=== PATIENT | female | born 1970 | race Caucasian/White ===

== ENCOUNTER 2017-05-29 03:14 | Emergency (ER) | payer BC, OTHER ==
[2017-05-29] MEDS ORDERED: SODIUM CHLORIDE 0.9% 1,000 ML IV ONE (03:24)
[2017-05-29] MEDS ORDERED: KETOROLAC 60 MG/2 ML VIAL IVP STA (03:24)
[2017-05-29] MEDS ORDERED: FAMOTIDINE 20 MG/2 ML VIAL IVP STA (03:25)
[2017-05-29] MEDS ORDERED: METOCLOPRAMIDE 10 MG/2 ML VIAL IVP STA (03:25)
[2017-05-29] MEDS ORDERED: METOCLOPRAMIDE 10 MG/2 ML VIAL ONE (03:31)
[2017-05-29] MEDS ORDERED: KETOROLAC 15 MG/ML VIAL ONE (03:32)
[2017-05-29] MEDS ORDERED: FAMOTIDINE 20 MG/2 ML VIAL ONE (03:32)
--- NOTE | 2017-05-29 03:41 | ED Physician Documentation ---
PD HPI NVD - Stated complaint Stated Complaint: VOMITING - Chief complaint Chief Complaint: Abd Pain - History obtained from History obtained from: Patient - History of Present Illness Timing - onset: How many hours ago (3), Today Timing - details: Abrupt onset, Still present in ED Associated symptoms: Abdominal pain Contributing factors: No: Sick contact, Bad food, Recent antibiotics Similar symptoms before: Work up / diagnostics, Treatment Recently seen: Not recently seen - Additonal information Additional information: Patient is a 46 year old female with a hisory of crohns and ibs (mixed diarrhea and constipation) who is presenting to the emergency department for for vomiting for the last three hours. patient states that it has been consistent and she can't keep anything down. Patient states that she now also has a pounding headache. Review of Systems Constitutional: denies: Fever, Chills Eyes: denies: Decreased vision, Photophobia Ears: denies: Ear pain Nose: denies: Congestion Throat: denies: Sore throat Cardiac: denies: Chest pain / pressure Respiratory: denies: Dyspnea, Cough GI: reports: Abdominal Pain, Nausea, Vomiting, Diarrhea : denies: Dysuria, Frequency, Incontinent Skin: denies: Rash, Lesions Musculoskeletal: denies: Neck pain, Back pain Neurologic: reports: Headache. 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: None : Kidney stones, None HEENT: None Psych: None, Anxiety Musculoskeletal: Osteoarthritis, Other Derm: Other drug resistant infections - Past Surgical History Past Surgical History: Yes General: Cholecystectomy, Appendectomy Ortho: Knee replacement, Spine surgery, Arthroscopic surgery - Present Medications Home Medications: Ambulatory Orders Medication Instructions Recorded Confirmed Clonazepam 1 mg PO DAILY 07/14/13 09/14/15 Lisinopril 5 mg PO DAILY 07/14/13 09/14/15 Verapamil [Calan] 80 mg PO BID 07/14/13 09/14/15 Clonidine HCl 0.3 mg PO BID 09/14/15 09/14/15 Ondansetron Odt [Zofran] 4 mg TL Q6H PRN #10 tablet 09/14/15 Prednisone 40 mg PO DAILY 5 Days tablet 09/14/15 Tapentadol HCl [Nucynta] 1 tab PO Q4HR PRN 09/14/15 09/14/15 Ondansetron Odt [Zofran] 4 mg TL Q6H PRN #14 tablet 05/29/17 - Allergies Allergies/Adverse Reactions: Allergies Allergy/AdvReac Type Severity Reaction Status Date / Time iodine Allergy Severe Rash Verified 05/29/17 03:22 morphine Allergy Severe Hives Verified 05/29/17 03:22 adhesive tape Allergy Intermediate Rash Verified 05/29/17 03:23 contrast Allergy Severe Respiratory Uncoded 05/29/17 03:22 - Social History Does the pt smoke?: No Smoking Status: Never smoker Does the pt drink ETOH?: No Does the pt have substance abuse?: Yes Substance Use and Type: Marijuana - Immunizations Immunizations are current?: Yes - POLST Patient has POLST: No PD ED PE NORMAL - Vitals Vital signs reviewed: Yes - General General: Alert and oriented X 3, Well developed/nourished - HEENT HEENT: Atraumatic, PERRL - Neck Neck: Supple, no meningeal sign, No JVD - Cardiac Cardiac: RRR, No murmur - Respiratory Respiratory: No respiratory distress, Clear bilaterally - Abdomen Abdomen: Soft - Derm Derm: Normal color, Warm and dry - Neuro Neuro: Alert and oriented X 3, No motor deficit, No sensory deficit, Normal speech PD ED PE EXPANDED - HEENT HEENT: Dry mucous membranes - Abdomen Abdomen: Tender to palpation, Epigastric. No: Rebound, Guarding Results - Vitals Vitals: Vital Signs - 24 hr 05/29/17 03:18 Temperature 36.7 C Heart Rate 93 Respiratory 20 Rate Blood Pressure 148/98 H O2 Saturation 96 Oxygen O2 Source Room air - Labs Labs: Laboratory Tests 05/29/17 05/29/17 04:00 04:00 WBC 21.9 H RBC 5.31 Hgb 16.6 H Hct 49.2 H MCV 92.7 MCH 31.2 H MCHC 33.7 RDW 12.8 Plt Count 334 MPV 8.0 Neut # 19.4 H Lymph # 1.2 L [place] # 0.9 Eos # 0.3 Baso # 0.1 Absolute Nucleated RBC 0.01 Nucleated RBC % 0.0 Sodium 135 Potassium 2.9 L Chloride 101 Carbon Dioxide 21 Anion Gap 13.0 BUN 23 H Creatinine 0.7 Estimated GFR (MDRD) 90 Glucose 93 Calcium 8.5 Total Bilirubin 1.1 H AST 19 ALT 26 Alkaline Phosphatase 67 Total Protein 7.7 Albumin 4.4 Globulin 3.3 Albumin/Globulin Ratio 1.3 Lipase 19 L PD MEDICAL DECISION MAKING - ED course Complexity details: reviewed old records, reviewed results, re-evaluated patient , considered differential, d/w patient ED course: Patient was seen and examined at bedside. IV access was gained and labs were drawn. Patient was treated with fluids, reglan, toradol and IV fluids. When patient's labs came back she was found to have a leukocytosis. CT was ordered and patient was treated with dilaudid for pain. patient responded well to the therapy and her symptoms resolved. patient's CT showed no major abnormalities. patient was treated with oral potassium. Patient was able to tolerate PO without difficulty and was stable for discharge with outpatient follow up. Departure - Departure Disposition: 01 Home, Self Care Clinical Impression: Gastroenteritis Condition: Good Instructions: ED Gastroenteritis Viral Follow-Up: Saleem Suazo MD [Primary Care Provider] - Prescriptions: Ondansetron Odt [Zofran] 4 mg TL Q6H PRN #14 tablet PRN Reason: Nausea / Vomiting Comments: Your symptoms today are being caused by gastroenteritis, likely viral in nature. You CT was within normal limits. Your potassium today was also low. It is important that you take the zofran every 6 hours and stay well hydrated with gatorade or other electrolyte solution. you should follow up with your pmd if your symptoms persist for more than the next few days. You may return to the emergency department at any time for new, worsening or uncontrollable symptoms.
[2017-05-29] MEDS ORDERED: ONDANSETRON ODT 4 MG TABLET TL STA (03:56)
[2017-05-29] MEDS ORDERED: ONDANSETRON ODT 4 MG TABLET ONE (03:59)
[2017-05-29 04:17] LABS: BASOPHILS # (AUTO) 0.1 10^3/uL (0.0-0.1); BASOPHILS % (AUTO) 0.5 %; EOSINOPHILS # (AUTO) 0.3 10^3/uL (0.0-0.7); EOSINOPHILS % (AUTO) 1.1 %; HCT - HEMATOCRIT 49.2 % (37.0-47.0); HGB - HEMOGLOBIN 16.6 g/dL (12.0-16.0); LYMPHOCYTES # (AUTO) 1.2 10^3/uL (1.5-3.5); LYMPHOCYTES % (AUTO) 5.5 %; MEAN CORPUSCULAR HEMOGLOBIN 31.2 pg (27.0-31.0); MEAN CORPUSCULAR HGB CONC 33.7 g/dL (32.0-36.0); MEAN CORPUSCULAR VOLUME 92.7 fL (81.0-99.0); MONOCYTES # (AUTO) 0.9 10^3/uL (0.0-1.0); MONOCYTES % (AUTO) 4.2 %; NEUTROPHILS # (AUTO) 19.4 10^3/uL (1.5-6.6); NEUTROPHILS % (AUTO) 88.7 %; RED BLOOD COUNT 5.31 10^6/uL (4.20-5.40); RED CELL DISTRIBUTION WIDTH 12.8 % (12.0-15.0); UNCORRECTED WHITE BLOOD COUNT 21.9 x10^3/uL; WHITE BLOOD COUNT 21.9 x10^3/uL (4.8-10.8)
[2017-05-29 04:30] LABS: ALBUMIN/GLOBULIN RATIO 1.3 (1.0-2.2); BILIRUBIN,TOTAL 1.1 mg/dL (0.2-1.0); CALCIUM 8.5 mg/dL (8.5-10.3); CREATININE 0.7 mg/dL (0.4-1.0); POTASSIUM 2.9 mmol/L (3.5-5.0); TOTAL PROTEIN 7.7 g/dL (6.7-8.2)
[2017-05-29] MEDS ORDERED: HYDROmorphone 1 MG/ML CARPUJECT ONE (04:53)
[2017-05-29] MEDS ORDERED: HYDROmorphone 1 MG/ML CARPUJECT IVP STA ×2 (04:54→04:55)
[2017-05-29] MEDS ORDERED: POTASSIUM CHLORIDE 20 MEQ TABLET PO STA (05:17)
--- NOTE | 2017-05-29 05:36 | CT Preliminary Report ---
Exam: CT Abdomen/Pelvis W/O IMPRESSION: 1. No gross acute inflammatory or obstructive process seen in the abdomen or pelvis on this non-IV co ntrast study. 2. Post cholecystectomy. [facility] SITE ID: [id number]
[2017-05-29] MEDS ORDERED: ONDANSETRON ODT 4 MG Prepack 2 TL PRN (05:45)
--- NOTE | 2017-05-29 05:46 | CT Report ---
EXAM: CT ABDOMEN AND PELVIS (CT KUB) EXAM DATE: 05/29/2017 05:21 AM. CLINICAL HISTORY: Abdominal pain, vomiting, leukocytosis. COMPARISONS: 08/19/2015. TECHNIQUE: Routine axial helical CT imaging was performed through the abdomen and pelvis without IV c ontrast. No IV contrast due to reported allergy. Reconstructions: Coronal and sagittal. In accordance with CT protocol optimization, one or more of the following dose reduction techniques w ere utilized for this exam: automated exposure control, adjustment of mA and/or KV based on patient s ize, or use of iterative reconstructive technique. FINDINGS: Lung Bases: Unremarkable. Right Kidney/Ureter: No stones, hydronephrosis, or hydroureter. No perinephric fat stranding. Left Kidney/Ureter: No stones, hydronephrosis, or hydroureter. No perinephric fat stranding. Other Solid Organs: Noncontrast images of the solid organs are grossly unremarkable. Gallbladder/Bile Ducts: Unremarkable post-cholecystectomy. Peritoneal Cavity: No free fluid, free air or pamela adenopathy. Bowel is grossly unremarkable. Pelvic Organs: No bladder stones or wall thickening. Noncontrast images of the visualized pelvic orga ns are unremarkable. Vasculature: Unremarkable. Other: Previous spinal surgery. IMPRESSION: 1. No gross acute inflammatory or obstructive process seen in the abdomen or pelvis on this non-IV co ntrast study. 2. Post-cholecystectomy. [facility] Referring Provider Line: [phone] SITE ID: [id number]
[2017-05-29] MEDS ORDERED: POTASSIUM CHLORIDE 20 MEQ TABLET PO ONE (05:48)
[2017-05-29] MEDS ORDERED: ONDANSETRON ODT 4 MG Prepack 2 TL ONE (05:52)
[2017-05-29 06:12] VITALS: BP 129/88
== END 2017-05-29 06:12 | disposition home or self-care (01) ==
LOC: ED 03:14
DX: K52.9 Noninfective gastroenteritis and colitis, unspecified (principal); E87.6 Hypokalemia; Z86.73 Personal history of transient ischemic attack (TIA), and cerebral infarction without residual deficits; Z96.659 Presence of unspecified artificial knee joint
CPT/HCPCS: 36415; 74176; 80053; 83690; 85025; 96361; 96374; 96375; 99283; A9270; J1170; Q0162

== ENCOUNTER 2018-07-10 14:10 | Emergency (ER) | payer BC ==
[2018-07-10 15:29] LABS: HCG UR QUAL NEGATIVE
--- NOTE | 2018-07-10 15:35 | ED Physician Documentation ---
PD HPI SEIZURE - Stated complaint Stated Complaint: NECK PX - Chief complaint Chief Complaint: Trauma Hd/Nk - History obtained from History obtained from: Patient, Family - History of Present Illness Timing - onset: How many days ago (3) Witnessed: Unwitnessed Number of seizures: Single, Lasted minutes Description of seizure activity: LOC, Postictal, Apneic Injury during seizure: Fell, Head injury, Neck injury Associated symptoms: Vision changes, Nausea / vomiting History of seizures: Other (4 prior episodes over the past 17 months.) Contributing factors: Other (prior CVA 2004, ablation 1999) Similar symptoms before: No diagnosis Recently seen: Not recently seen - Additional information Additional information: 47-year-old female who has had episodes of syncope in the past 17 months. She has had brief loss of consciousness for unknown reason and she has had 2 episodes close together now. She had an episode 3 days ago during which she collapsed in her bedroom and struck her head. She was attended to by her significant other and she noted that she was very stiff when he first went there and that she was not breathing. She came to relatively rapidly and had amnesia for the event. She does remember immediately prior to collapsing that her vision had an expanding feeling to it. She has previously had Zhepg-[id number]-[id number] and has had an ablation to that pathway. 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 She has not been on antiseizure medicine she has never been diagnosed with seizure. Review of Systems Constitutional: denies: Fever, Chills, Myalgias Eyes: denies: Decreased vision Ears: denies: Ear pain Nose: denies: Rhinorrhea / runny nose, Congestion Throat: denies: Sore throat Cardiac: denies: Chest pain / pressure, Palpitations Respiratory: denies: Dyspnea, Cough GI: reports: Vomiting (at the time of the syncope). denies: Abdominal Pain, Nausea : denies: Dysuria, Frequency Skin: denies: Rash Musculoskeletal: reports: Neck pain. denies: Back pain, Extremity pain Neurologic: reports: Numbness (to the 4th and 5th digit on the right.). 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: None : Kidney stones HEENT: None Psych: Anxiety Musculoskeletal: Osteoarthritis, Other Derm: Other drug resistant infections - Past Surgical History Past Surgical History: Yes General: Cholecystectomy, Appendectomy Ortho: Spine surgery, Arthroscopic surgery - Present Medications Home Medications: Ambulatory Orders Medication Instructions Recorded Confirmed Lisinopril 5 mg PO DAILY 07/14/13 09/14/15 Verapamil [Calan] 80 mg PO BID 07/14/13 09/14/15 clonazePAM [Clonazepam] 1 mg PO DAILY 07/14/13 09/14/15 Ondansetron Odt [Zofran] 4 mg TL Q6H PRN #10 tablet 09/14/15 Tapentadol HCl [Nucynta] 1 tab PO Q4HR PRN 09/14/15 09/14/15 cloNIDine HCl [Clonidine HCl] 0.3 mg PO BID 09/14/15 09/14/15 predniSONE [Prednisone] 40 mg PO DAILY 5 Days tablet 09/14/15 Ondansetron Odt [Zofran] 4 mg TL Q6H PRN #14 tablet 05/29/17 traMADol [Ultram] 50 - 100 mg PO Q4-6H PRN #30 tablet 07/10/18 - Allergies Allergies/Adverse Reactions: Allergies Allergy/AdvReac Type Severity Reaction Status Date / Time iodine Allergy Severe Rash Verified 07/10/18 14:21 morphine Allergy Severe Hives Verified 07/10/18 14:21 adhesive tape Allergy Intermediate Rash Verified 07/10/18 14:21 contrast Allergy Severe Respiratory Uncoded 05/29/17 03:22 - Social History Does the pt smoke?: Yes Smoking Status: Current every day smoker Does the pt drink ETOH?: Yes Does the pt have substance abuse?: Yes Substance Use and Type: Marijuana - Immunizations Immunizations are current?: Yes - POLST Patient has POLST: No PD ED PE NORMAL - Vitals Vital signs reviewed: Yes (normal ) - General General: Alert and oriented X 3, No acute distress, Well developed/nourished - HEENT HEENT: Atraumatic, PERRL, EOMI, Ears normal, Moist mucous membranes, Pharynx benign, Dentition benign - Neck Neck: Supple, no meningeal sign, No bony TTP - Cardiac Cardiac: RRR, No murmur - Respiratory Respiratory: No respiratory distress, Clear bilaterally - Abdomen Abdomen: Soft, Non tender - Back Back: No CVA TTP, No spinal TTP - Derm Derm: Normal color, Warm and dry, No rash - Extremities Extremities: No deformity, No edema - Neuro Neuro: Alert and oriented X 3, therapy aide 2-12 intact, No motor deficit, No sensory deficit, Normal speech Eye Opening: Spontaneous Motor: Obeys Commands Verbal: Oriented GCS Score: 15 - Psych Psych: Normal mood, Normal affect Results - Vitals Vitals: Vital Signs - 24 hr 07/10/18 07/10/18 14:14 15:50 Temperature 36.7 C Heart Rate 72 56 L Respiratory 16 13 Rate Blood Pressure 127/80 136/90 H O2 Saturation 100 100 Oxygen O2 Source Room air - EKG (time done) 1441 Rate: Rate (enter#) (78) Rhythm: NSR Ischemia: Normal ST segments Compare to prior EKG: Unchanged from prior EKG (SPT 09-14-15 no sig change) Computer interpretation: Agree with computer - Labs Labs: Laboratory Tests 07/10/18 07/10/18 07/10/18 15:05 15:05 15:40 WBC 9.3 RBC 4.65 Hgb 15.2 Hct 43.9 MCV 94.2 MCH 32.7 H MCHC 34.7 RDW 12.4 Plt Count 309 MPV 8.0 Neut # (Auto) 6.2 Lymph # (Auto) 2.3 [place] # (Auto) 0.5 Eos # (Auto) 0.1 Baso # (Auto) 0.1 Absolute Nucleated RBC 0.00 Nucleated RBC % 0.0 Sodium Potassium Chloride Carbon Dioxide Anion Gap BUN Creatinine Estimated GFR (MDRD) Glucose Calcium Total Bilirubin AST ALT Alkaline Phosphatase Total Creatine Kinase CK-MB (CK-2) Troponin I Total Protein Albumin Globulin Albumin/Globulin Ratio Lipase Urine Color YELLOW Urine Clarity HAZY Urine pH 6.0 Ur Specific Harper 1.020 1.020 Urine Protein NEGATIVE Urine Glucose (UA) NEGATIVE Urine Ketones NEGATIVE Urine Occult Blood NEGATIVE Urine Nitrite POSITIVE H Urine Bilirubin NEGATIVE Urine Urobilinogen 0.2 (NORMAL) Ur Leukocyte Esterase TRACE H Urine RBC None Seen Urine WBC 0-3 Ur Squamous Epith Cells MANY Squamous H Urine Bacteria Many H Ur Microscopic Review INDICATED Urine Culture Comments NOT INDICATED Urine HCG, Qual NEGATIVE 07/10/18 07/10/18 15:40 15:40 WBC RBC Hgb Hct MCV MCH MCHC RDW Plt Count MPV Neut # (Auto) Lymph # (Auto) [place] # (Auto) Eos # (Auto) Baso # (Auto) Absolute Nucleated RBC Nucleated RBC % Sodium 137 Potassium 3.7 Chloride 104 Carbon Dioxide 23 Anion Gap 10.0 BUN 15 Creatinine 0.8 Estimated GFR (MDRD) 77 L Glucose 117 H Calcium 8.9 Total Bilirubin 0.8 AST 22 ALT 11 Alkaline Phosphatase 61 Total Creatine Kinase 45 CK-MB (CK-2) 1.2 Troponin I < 0.04 Total Protein 7.1 Albumin 4.1 Globulin 3.0 Albumin/Globulin Ratio 1.4 Lipase 25 Urine Color Urine Clarity Urine pH Ur Specific Harper Urine Protein Urine Glucose (UA) Urine Ketones Urine Occult Blood Urine Nitrite Urine Bilirubin Urine Urobilinogen Ur Leukocyte Esterase Urine RBC Urine WBC Ur Squamous Epith Cells Urine Bacteria Ur Microscopic Review Urine Culture Comments Urine HCG, Qual - Rads (name of study) CT head without Radiology: Prelim report reviewed (Impression: Mild scattered white matter low densities concerning for demyelinating disease, otherwise unremarkable head CT.), EMP read indepedently, See rad report CT cervical spine without Radiology: Prelim report reviewed (Impression: 1. No acute cervical spine abnormalities. 2. Degenerative disc disease, worst at C6-C7.), EMP read indepedently, See rad report PD MEDICAL DECISION MAKING - ED course Complexity details: reviewed old records, reviewed results, re-evaluated patient, considered differential, d/w patient, d/w family ED course: 47-year-old female with a prior history of Mosfc-Socyqqnhc-Kabkr which is status post ablation and history of a prior CVA secondary to a septal defect and she is status post repair and these are remote problems. Over the last 17 months she has had 5 episodes of syncope which are unexplained and for which she is found to have stopped breathing and she is stiff. She recovers quickly and has what sounds like us a short postictal period with amnesia for the event. My initial concern for this patient was a arrhythmia causing syncope and she pointed out that when she had the Ufqng-Whydaplpb-Qvpve she was able to drive her car to the hospital with heart rate of 300. I suspect that her syncope is not related to this particular arrhythmia. I suspect she does have an underlying seizure disorder and I recommended she stop driving and follow-up with a neurologist. I did talk to Dr. Blevins at [facility] he recommends not starting empiric antiseizure medication and follow-up with neurology. The patient has previously been evaluated for MS with a an MR of the head 2 years ago as a follow-up from findings similar to today on her CT scan. In addition today the patient has some neck pain from the fall and she is asking for some tramadol. And we will prescribe this. The patient will follow up with neurology. Departure - Departure Disposition: 01 Home, Self Care Clinical Impression: Seizure Cervical strain, acute Qualifiers: Encounter type: initial encounter Qualified Code(s): S16.1XXA - Strain of muscle, fascia and tendon at neck level, initial encounter Condition: Stable Instructions: ED Seizure New Onset Unk Cause, ED Sprain Strain Neck Follow-Up: Saleem Suazo MD [Primary Care Provider] - [facility] ([place], [place]) Spec [Provider Group] Prescriptions: traMADol [Ultram] 50 - 100 mg PO Q4-6H PRN #30 tablet PRN Reason: Pain Comments: Today my biggest concern for the episode you have have been having is for seizure. In addition you have had episodes of arrhythmia previously and I recommend that you begin to wear a monitoring device today. I discussed your case with the neurologist at [facility] and he has recommended we not place you on antiseizure medication at this point and have you follow-up with the neurologist as an outpatient at [facility]. You will need an MRI in follow-up from your CAT scan today. This can be done as an outpatient with an order from Dr. Suazo. This information would be helpful prior to your neurology visit.
[2018-07-10 15:48] LABS: BASOPHILS # (AUTO) 0.1 10^3/uL (0.0-0.1); BASOPHILS % (AUTO) 0.9 %; EOSINOPHILS # (AUTO) 0.1 10^3/uL (0.0-0.7); EOSINOPHILS % (AUTO) 1.2 %; HGB - HEMOGLOBIN 15.2 g/dL (12.0-16.0); LYMPHOCYTES # (AUTO) 2.3 10^3/uL (1.5-3.5); LYMPHOCYTES % (AUTO) 25.1 %; MEAN CORPUSCULAR HEMOGLOBIN 32.7 pg (27.0-31.0); MEAN CORPUSCULAR HGB CONC 34.7 g/dL (32.0-36.0); MEAN CORPUSCULAR VOLUME 94.2 fL (81.0-99.0); MONOCYTES # (AUTO) 0.5 10^3/uL (0.0-1.0); MONOCYTES % (AUTO) 5.7 %; NEUTROPHILS # (AUTO) 6.2 10^3/uL (1.5-6.6); NEUTROPHILS % (AUTO) 67.1 %; PLT - PLATELET COUNT 309 10^3/uL (130-450); RED BLOOD COUNT 4.65 10^6/uL (4.20-5.40); RED CELL DISTRIBUTION WIDTH 12.4 % (12.0-15.0); WHITE BLOOD COUNT 9.3 x10^3/uL (4.8-10.8)
[2018-07-10 15:54] LABS: BILIRUBIN,URINE NEGATIVE (NEGATIVE); CLARITY,URINE HAZY (CLEAR); GLUCOSE, URINE (UA) NEGATIVE (NEGATIVE); KETONES,URINE (UA) NEGATIVE (NEGATIVE); LEUKOCYTE ESTERASE, URINE TRACE (NEGATIVE); NITRITE,URINE POSITIVE (NEGATIVE); OCCULT BLOOD,URINE NEGATIVE (NEGATIVE); PROTEIN,URINE NEGATIVE (NEGATIVE); UROBILINOGEN,URINE 0.2 (NORMAL) E.U./dL (NORMAL)
[2018-07-10 15:56] LABS: BACTERIA,URINE Many /HPF (None Seen); RBC,URINE None Seen /HPF (0-5); SQUAMOUS EPITHELIAL CELL,UR MANY Squamous (<= Few)
[2018-07-10 16:00] LABS: ALBUMIN 4.1 g/dL (3.2-5.5); ALBUMIN/GLOBULIN RATIO 1.4 (1.0-2.2); BILIRUBIN,TOTAL 0.8 mg/dL (0.2-1.0); CALCIUM 8.9 mg/dL (8.5-10.3); CREATININE 0.8 mg/dL (0.4-1.0); TOTAL PROTEIN 7.1 g/dL (6.7-8.2)
[2018-07-10 16:04] LABS: TROPONIN I < 0.04 ng/mL (<0.49)
[2018-07-10 16:06] LABS: CREATINE KINASE MB 1.2 ng/mL (0.6-6.3)
[2018-07-10] MEDS ORDERED: KETOROLAC 60 MG/2 ML VIAL IM STA (16:45)
--- NOTE | 2018-07-10 16:46 | CT Report ---
Reason: siezures head injury Procedure Date: 07/10/2018 Accession Number: [id number] / [id number] Procedure: CT - Head W/O CPT Code: FULL RESULT: EXAM: CT HEAD EXAM DATE: 07/10/2018 04:25 PM. CLINICAL HISTORY: Seizures. Head injury. COMPARISON: None. TECHNIQUE: Multiaxial CT images were obtained from the foramen magnum to the vertex. Reformats: Sagittal and coronal. IV contrast: None. In accordance with CT protocol optimization, one or more of the following dose reduction techniques were utilized for this exam: automated exposure control, adjustment of mA and/or KV based on patient size, or use of iterative reconstructive technique. FINDINGS: Parenchyma: No intraparenchymal hemorrhage. Mild scattered white matter low densities. No evidence of mass, midline shift, or CT findings of acute infarction. Sanchez-white differentiation is distinct. Extraaxial Spaces: Normal for age. No subdural or epidural collections identified. Ventricles: Normal in size and position. Sinuses and Orbits: Imaged paranasal sinuses, orbits, and mastoids show no significant abnormality. Bones: No evidence of fracture or calvarial defect. Other: None. IMPRESSION: Mild scattered white matter low densities concerning for demyelinating disease, otherwise unremarkable head CT. [facility]
--- NOTE | 2018-07-10 16:49 | CT Report ---
Reason: fall headinjury neck pain on the left. Procedure Date: 07/10/2018 Accession Number: [id number] / [id number] Procedure: CT - Cervical Spine W/O CPT Code: FULL RESULT: EXAM: CT CERVICAL SPINE WITHOUT CONTRAST DATE: 07/10/2018 04:25 PM. HISTORY: Seizures. Fall. Head injury. Neck pain on the left. COMPARISONS: None. TECHNIQUE: Thin-section axial images were acquired of the cervical spine without contrast. Post-processing: Coronal and sagittal reformats. Other: None. In accordance with CT protocol optimization, one or more of the following dose reduction techniques were utilized for this exam: automated exposure control, adjustment of mA and/or KV based on patient size, or use of iterative reconstructive technique. FINDINGS: Alignment: No scoliosis or spondylolisthesis. Bones: No fracture or bone lesion. Interspace Levels/Facets: C1-C2: Unremarkable. C2-C3: Unremarkable. C3-C4: Unremarkable. C4-C5: Mild disk space narrowing. C5-C6: Mild disk space narrowing. C6-C7: Moderate disk space narrowing with spurring. C7-T1: Unremarkable. Musculature: Normal. No fatty atrophy. Other: The paravertebral and prevertebral soft tissues are unremarkable. The lung apices are clear. IMPRESSION: 1. No acute cervical spine abnormalities. 2. Degenerative disk disease, worst at C6-C7. [facility]
[2018-07-10 17:27] VITALS: BP 130/87
== END 2018-07-10 17:30 | disposition home or self-care (01) ==
LOC: ED 14:10
DX: S16.1XXA Strain of muscle, fascia and tendon at neck level, initial encounter (principal); R56.9 Unspecified convulsions; I10 Essential (primary) hypertension; F17.200 Nicotine dependence, unspecified, uncomplicated; Z86.73 Personal history of transient ischemic attack (TIA), and cerebral infarction without residual deficits; Z87.898 Personal history of other specified conditions; I49.9 Cardiac arrhythmia, unspecified; W18.39XA Other fall on same level, initial encounter; W22.8XXA Striking against or struck by other objects, initial encounter; Y92.003 Bedroom of unspecified non-institutional (private) residence as the place of occurrence of the external cause
CPT/HCPCS: 70450; 72125; 80053; 81001; 81003; 81025; 82550; 82553; 83690; 84484; 85025; 87086; 93005; 96372; 99284

== ENCOUNTER 2019-04-23 07:57 | Outpatient (CLI) | payer OTHER ==
--- NOTE | 2019-04-23 10:40 | MRI Report ---
Reason: CERVICAL ROOT DISORDERS, NOT ELSWHERE CLASSIFIED Procedure Date: 04/23/2019 Accession Number: [id number] / [id number] Procedure: MRI - Cervical Spine W/O CPT Code: FULL RESULT: EXAM: MRI CERVICAL SPINE WITHOUT CONTRAST EXAM DATE: 04/23/2019 08:40 AM. CLINICAL HISTORY: 48-year-old woman with neck pain and cervical root disorders. COMPARISONS: CERVICAL SPINE W/O 07/10/2018 4:18 PM. TECHNIQUE: Multiplanar, multisequence T1-weighted and fluid-sensitive sequences of the cervical spine without contrast. Other: None. FINDINGS: Neurologic Structures: Cervical spinal cord is normal in caliber without definite signal abnormality. Visualized contents of the posterior fossa are unremarkable. Alignment: Minimal grade 1 retrolisthesis of C4 on C5 measures approximately 1-2 mm. Bone Marrow: No gross fractures or bone lesions. Mild degenerative end plate edema is present at C4-C5. Interspace Levels/Facets: C2-C3: Unremarkable. C3-C4: Unremarkable. C4-C5: There is moderate disk height loss. Posterior disk osteophyte complex and mild thickening of the ligament of flavum result in moderate narrowing of the central canal with effacement or near effacement of the ventral and dorsal CSF spaces. Uncovertebral joint hypertrophy results in severe narrowing of the left neural foramen and moderate narrowing on the right. C5-C6: Small posterior disk osteophyte complex and focal thickening of the ligament of flavum result in moderate narrowing of the central canal with near effacement of the ventral and dorsal CSF spaces. Uncovertebral joint hypertrophy results in moderate to severe narrowing of the left neural foramen and minimal narrowing on the right. C6-C7: Posterior disk osteophyte complex results in mild to moderate narrowing of the central canal. Uncovertebral joint hypertrophy results in moderate to severe narrowing of the left neural foramen and minimal narrowing on the right. C7-T1: Unremarkable. Musculature: Normal. No edema or fatty atrophy. Other: The paravertebral and prevertebral soft tissues are normal. IMPRESSION: 1. Multilevel degenerative disk changes with mild bony endplate edema at C4-C5. 2. Degenerative changes result in the following: - C4-C5: Moderate narrowing of the central canal with effacement or near effacement of the CSF spaces. Severe narrowing of the left neural foramen and moderate narrowing on the right. - C5-C6: Moderate narrowing of the central canal with near effacement of the CSF spaces. Moderate to severe narrowing of the left neural foramen. - C6-C7: Mild to moderate narrowing of the central canal. Moderate to severe narrowing of the left neural foramen. [facility]
== END 2019-04-23 07:58 | disposition home or self-care (01) ==
LOC: DI 07:57
PROVIDERS: ATTEND Family Medicine
DX: M50.321 Other cervical disc degeneration at C4-C5 level (principal); M48.02 Spinal stenosis, cervical region
CPT/HCPCS: 72141

== ENCOUNTER 2019-07-15 07:17 | Emergency (ER) | payer OTHER ==
[2019-07-15 07:25] VITALS: BP 175/83
[2019-07-15] MEDS ORDERED: CLINDAMYCIN 150 MG CAPSULE PO STA (07:36)
--- NOTE | 2019-07-15 07:40 | ED Physician Documentation ---
History of Present Illness - Stated complaint Stated Complaint: PIERCING INFECTION/NIPPLE - Chief complaint Chief Complaint: General - History obtained from History obtained from: Patient - History of Present Illness Timing: How many days ago (several) Pain level max: 5 Pain level now: 3 - Additonal information Additional information: 48-year-old female states that she had a piercing in the right breast, this was performed about a year ago. Several days ago started noticing redness to the breast, today a small amount of pus drained. No fevers. Nothing makes it better or worse. There is no piercing currently in place. 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: None : Kidney stones HEENT: None Psych: Anxiety Musculoskeletal: Osteoarthritis, Other Derm: Other drug resistant infections - Past Surgical History Past Surgical History: Yes General: Cholecystectomy, Appendectomy Ortho: Spine surgery, Arthroscopic surgery - Present Medications Home Medications: Ambulatory Orders Medication Instructions Recorded Confirmed Lisinopril 5 mg PO DAILY 07/14/13 09/14/15 Verapamil [Calan] 80 mg PO BID 07/14/13 09/14/15 clonazePAM [Clonazepam] 1 mg PO DAILY 07/14/13 09/14/15 Ondansetron Odt [Zofran] 4 mg TL Q6H PRN #10 tablet 09/14/15 Tapentadol HCl [Nucynta] 1 tab PO Q4HR PRN 09/14/15 09/14/15 cloNIDine HCl [Clonidine HCl] 0.3 mg PO BID 09/14/15 09/14/15 predniSONE [Prednisone] 40 mg PO DAILY 5 Days tablet 09/14/15 Ondansetron Odt [Zofran] 4 mg TL Q6H PRN #14 tablet 05/29/17 traMADol [Ultram] 50 - 100 mg PO Q4-6H PRN #30 tablet 07/10/18 Clindamycin HCl [Clindamycin 300MG 300 mg PO Q6H #40 capsule 07/15/19 CAP] - Allergies Allergies/Adverse Reactions: Allergies Allergy/AdvReac Type Severity Reaction Status Date / Time iodine Allergy Severe Rash Verified 07/15/19 07:25 morphine Allergy Severe Hives Verified 07/15/19 07:25 adhesive tape Allergy Intermediate Rash Verified 07/15/19 07:25 contrast Allergy Severe Respiratory Uncoded 05/29/17 03:22 - Social History Does the pt smoke?: Yes Smoking Status: Current every day smoker Does the pt drink ETOH?: Yes Does the pt have substance abuse?: Yes - Immunizations Immunizations are current?: Yes - POLST Patient has POLST: No PD ED PE NORMAL - Vitals Vital signs reviewed: Yes - General General: Alert and oriented X 3, No acute distress, Well developed/nourished - HEENT HEENT: Moist mucous membranes - Neck Neck: Supple, no meningeal sign - Cardiac Cardiac: RRR - Respiratory Respiratory: No respiratory distress, Clear bilaterally - Derm Derm: Warm and dry, Other (Mild erythema, no purulence to the right breast. No palpable abscess. Normal appearance other than the erythema) - Neuro Neuro: Alert and oriented X 3 - Psych Psych: Normal mood, Normal affect Results - Vitals Vitals: Vital Signs - 24 hr 07/15/19 07:23 Temperature 36.9 C Heart Rate 78 Respiratory 18 Rate Blood Pressure 175/83 H O2 Saturation 100 Oxygen O2 Source Room air PD MEDICAL DECISION MAKING - ED course Complexity details: considered differential, d/w patient ED course: 48-year-old female with cellulitis of the right breast. Will place on clindamycin. She is well-appearing, nontoxic. Afebrile. No drainable abscess. Patient counseled regarding signs and symptoms for which I believe and urgent re-evaluation would be necessary. Patient with good understanding of and agreement to plan and is comfortable going home at this time This document was made in part using voice recognition software. While efforts are made to proofread this document, sound alike and grammatical errors may occur. Departure - Departure Disposition: 01 Home, Self Care Clinical Impression: Cellulitis Qualifiers: Site of cellulitis: unspecified site Qualified Code(s): L03.90 - Cellulitis, unspecified Condition: Good Instructions: ED Infec Skin Cellulitis Follow-Up: Saleem Suazo MD [Primary Care Provider] - Within 1 week Prescriptions: Clindamycin HCl [Clindamycin 300MG CAP] 300 mg PO Q6H #40 capsule Comments: Take all antibiotics until gone. Return if you worsen. Follow-up with your doctor for a repeat evaluation within 3 to 4 days. You should start to notice an improvement in the next 24 hours.
== END 2019-07-15 07:47 | disposition home or self-care (01) ==
LOC: ED 07:17
DX: N61.0 Mastitis without abscess (principal); I10 Essential (primary) hypertension; F17.200 Nicotine dependence, unspecified, uncomplicated
CPT/HCPCS: 99282; 99284; A9270

== ENCOUNTER 2019-08-02 10:20 | Outpatient (CLI) | payer OTHER ==
--- NOTE | 2019-08-02 12:16 | XRAY Report ---
Reason: SYNCOPE WITH FACIAL TRAUMA Procedure Date: 08/02/2019 Accession Number: [id number] / [id number] Procedure: XR - Nasal Bones CPT Code: Final Report FULL RESULT: EXAM: NASAL BONES RADIOGRAPHY EXAM DATE: 08/02/2019 10:45 AM. CLINICAL HISTORY: SYNCOPE WITH FACIAL TRAUMA. COMPARISONS: None. TECHNIQUE: 3 views. FINDINGS: Bones: Acute displaced and depressed nasal bone fracture with 1.5 mm of posterior displacement of the more distal fragment. Sinuses: Normal. No opacities or fluid levels. Other: Mild to moderate swelling overlying the nasal bones. IMPRESSION: 1. Acute depressed nasal bone fracture. 2. Overlying soft tissue swelling. RADIA
== END 2019-08-02 10:21 | disposition home or self-care (01) ==
LOC: DI.N 10:20 → DI 10:21
PROVIDERS: ATTEND Physician Assistant
DX: S02.2XXA Fracture of nasal bones, initial encounter for closed fracture (principal)
CPT/HCPCS: 70160

== ENCOUNTER 2019-08-10 11:45 | Outpatient (CLI) | payer OTHER ==
--- NOTE | 2019-08-10 12:51 | XRAY Report ---
Reason: LEFT KNEE EFFUSION DIRECT IMPACT TO PATELLA Procedure Date: 08/10/2019 Accession Number: [id number] / [id number] Procedure: XR - Knee 3 View LT CPT Code: Final Report FULL RESULT: EXAM: LEFT KNEE RADIOGRAPHY EXAM DATE: 08/10/2019 12:03 PM. CLINICAL HISTORY: LEFT KNEE EFFUSION DIRECT IMPACT TO PATELLA. COMPARISON: None. TECHNIQUE: 3 views. FINDINGS: Bones: Oh fully threaded screws anterior to posterior through the tibial tuberosity. No fracture or focal bone lesion. Joints: Mild medial tibiofemoral compartment and patellofemoral compartment joint space narrowing. Mild 3 compartment osteophyte formation. No subluxation. No effusion. Soft Tissues: No significant soft tissue swelling. IMPRESSION: 1. No fracture, malalignment, or joint effusion. 2. Mild 3 compartment osteoarthritis. 3. Screws through the tibial tuberosity. OSCAR The call report notification system was initiated by Dr. Aleksander Haas at 12:50 PM on 08/10/2019.
== END 2019-08-10 11:46 | disposition home or self-care (01) ==
LOC: DI 11:45
PROVIDERS: ATTEND Internal Medicine
DX: M17.12 Unilateral primary osteoarthritis, left knee (principal)

== ENCOUNTER 2019-12-27 16:53 | Outpatient (CLI) | payer OTHER ==
--- NOTE | 2019-12-28 10:27 | XRAY Report ---
Reason: PAIN IN LEFT TOE(S) Procedure Date: 12/27/2019 Accession Number: [id number] / [id number] Procedure: XR - Foot 3 View LT CPT Code: Final Report FULL RESULT: EXAM: LEFT FOOT RADIOGRAPHY EXAM DATE: 12/27/2019 05:24 PM. CLINICAL HISTORY: PAIN IN LEFT TOE(S). Stubbed toes today. Left foot pain near fifth MTP joint. COMPARISON: XR FOOT COMPLETE MIN 3 VIEWS 04/13/2012 10:59 PM. TECHNIQUE: 3 views. FINDINGS: Bones: Deformity at the fifth metatarsal head suspected to be chronic. Question lucency at the medial aspect of the fifth toe proximal phalanx base on oblique view raising question of nondisplaced fracture. No other suspected fracture. Joints: No subluxations. Soft Tissues: Unremarkable. IMPRESSION: 1. Question nondisplaced fracture at base of fifth toe proximal phalanx. Clinical correlation recommended. 2. Deformity of fifth metatarsal head likely related to sequela of prior trauma. RADIA
== END 2019-12-27 16:54 | disposition home or self-care (01) ==
LOC: DI 16:53
PROVIDERS: ATTEND Internal Medicine
DX: M79.675 Pain in left toe(s) (principal)

== ENCOUNTER 2020-07-02 06:46 | Outpatient (CLI) | payer OTHER, BC | END 2020-07-02 06:47 | disposition EMS.NT | LOC: EMS 06:46 | PROVIDERS: ATTEND Emergency Medicine | DX: Z04.1 Encounter for examination and observation following transport accident (principal) ==

== ENCOUNTER 2020-07-02 08:00 | Emergency (ER) | payer OTHER, BC ==
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
[2020-07-02 08:15] VITALS: BP 138/96
[2020-07-02] MEDS ORDERED: HYDROmorphone 2 MG/ML VIAL IM STA (08:29)
[2020-07-02] MEDS ORDERED: KETOROLAC 30 MG/ML VIAL IM STA (08:29)
[2020-07-02] MEDS ORDERED: methocarbamoL 500 MG TABLET PO STA (08:29)
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
== END 2020-07-02 10:15 | disposition home or self-care (01) ==
LOC: ED 08:00
DX: S16.1XXA Strain of muscle, fascia and tendon at neck level, initial encounter (principal); S39.012A Strain of muscle, fascia and tendon of lower back, initial encounter; V48.0XXA Car driver injured in noncollision transport accident in nontraffic accident, initial encounter; W22.11XA Striking against or struck by driver side automobile airbag, initial encounter; Y92.410 Unspecified street and highway as the place of occurrence of the external cause; I10 Essential (primary) hypertension; F17.200 Nicotine dependence, unspecified, uncomplicated
CPT/HCPCS: 72125; 72131; 96372; 99284; A9270; J1170

== ENCOUNTER 2021-04-02 17:04 | Outpatient (CLI) | payer OTHER, BC ==
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
== END 2021-04-02 17:05 | disposition home or self-care (01) ==
LOC: DI 17:04
PROVIDERS: ATTEND Internal Medicine
DX: R07.9 Chest pain, unspecified (principal)

== ENCOUNTER 2021-10-23 12:57 | Emergency (ER) | payer BC, OTHER ==
[2021-10-23] MEDS ORDERED: KETOROLAC 30 MG/ML VIAL IM STA (13:26)
[2021-10-23] MEDS ORDERED: HYDROmorphone 1 MG/ML CARPUJECT IM STA ×2 (13:26→15:02)
[2021-10-23] MEDS ORDERED: ACETAMINOPHEN 325 MG TABLET PO STA (13:27)
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
--- NOTE | 2021-10-23 15:13 | ED Physician Documentation ---
PD HPI LOWER EXT INJURY - Stated complaint Stated Complaint: R HIP PX - Chief complaint Chief Complaint: Trauma Ext - History obtained from History obtained from: Patient - History of Present Illness PD HPI LOW EXT INJURY LOCATION: Right, Hip, Other (pelvic area) Type of injury: Fall (Fell and slipped on ice while in [facility] 5 days ago. Seen in local ER with negative x-ray. Has continued with significant pain on walking and rotation.) Where injury occurred: Other (while visiting in [place]) Timing - onset: How many days ago (5) Timing - duration: Days (5) Timing - details: Abrupt onset, Still present Worsened by: Moving (only mildly painful with ROM while lying, but any weight or resistance hurts "excruciatingly".), Other (weight bearing) Associated symptoms: No: Weakness, Numbness, Swelling Similar symptoms before: Has not had sx before Recently seen: Emergency Dept (5 days ago with negative xray. Seen PMD office 2 days ago with referral placed for MRI of hip. This is pending.) Review of Systems Constitutional: denies: Fever, Chills Nose: denies: Rhinorrhea / runny nose, Congestion Throat: denies: Sore throat Respiratory: denies: Cough Skin: denies: Abrasion (s), Laceration (s) Musculoskeletal: denies: Back pain Neurologic: denies: Focal weakness, Numbness PD PAST MEDICAL HISTORY - Past Medical History Past Medical History: Yes Cardiovascular: Hypertension Respiratory: None Neuro: None Endocrine/Autoimmune: None GI: GI bleed, Other DRAMA DIRECTOR: None : Kidney stones HEENT: None Psych: Anxiety Musculoskeletal: Osteoarthritis, Other Derm: Other drug resistant infections - Past Surgical History Past Surgical History: Yes General: Cholecystectomy, Appendectomy Ortho: Spine surgery, Arthroscopic surgery - Present Medications Home Medications: Ambulatory Orders Medication Instructions Recorded Confirmed clonazePAM [Clonazepam] 1 mg PO TID PRN 07/14/13 10/23/21 Oxycodone HCl/Acetaminophen 1 each PO Q6H PRN #20 tablet 07/02/20 10/23/21 [Percocet 5-325 mg Tablet] Acetaminophen [Acetaminophen Extra 500 mg PO QID PRN #50 tablet 10/23/21 Strength] Docusate Sodium 100Mg Capsule 100 mg PO DAILY #20 cap 10/23/21 [Colace 100Mg Capsule] Eszopiclone [Lunesta] 3 mg PO HS PRN 10/23/21 10/23/21 Naproxen 250 mg PO TID 7 Days #20 tablet 10/23/21 Progesterone,Micronized 200 mg PO HS 10/23/21 10/23/21 [Prometrium] cloNIDine [Catapres] 0.2 mg PO TID 10/23/21 10/23/21 estradioL [Estradiol] 5 mg PO DAILY 10/23/21 10/23/21 oxyCODONE [Roxicodone] 5 mg PO Q6H PRN #20 tablet 10/23/21 - Allergies Allergies/Adverse Reactions: Allergies Allergy/AdvReac Type Severity Reaction Status Date / Time iodine Allergy Severe Rash Verified 10/23/21 13:09 morphine Allergy Severe Hives Verified 10/23/21 13:09 adhesive tape Allergy Intermediate Rash Verified 10/23/21 13:09 contrast Allergy Severe Respiratory Uncoded 10/23/21 13:09 - Social History Does the pt smoke?: Yes Smoking Status: Current every day smoker Does the pt drink ETOH?: Yes Does the pt have substance abuse?: Yes - Immunizations Immunizations are current?: Yes - POLST Patient has POLST: No PD ED PE NORMAL - Vitals Vital signs reviewed: Yes - General General: Alert and oriented X 3, Well developed/nourished, Other (appears in pain with ROM of hip against resistance. Is brought into ER in wheelchair. ) - Abdomen Abdomen: Soft, Non tender - Back Back: No CVA TTP, No spinal TTP - Derm Derm: Normal color, Warm and dry - Extremities Extremities: Other (The right hip is tender in the anterior hip and also in the SI joint posteriorly. No tailbone tenderness. No lumbar tenderness. Range of motion of the hip passively has a good range of motion but hurts with external rotation. No gross deformity.) - Neuro Neuro: Alert and oriented X 3, No motor deficit, No sensory deficit, Normal speech Results - Vitals Vitals: Vital Signs - 24 hr 10/23/21 10/23/21 13:05 15:19 Temperature 36.2 C L 37.3 C Heart Rate 72 55 L Respiratory 16 16 Rate Blood Pressure 143/85 H 137/89 H O2 Saturation 100 100 Oxygen O2 Source Room air - Rads (name of study) pelvic CT Radiology: Prelim report reviewed (Cortical irregularity of the right lateral acetabulum. This is nondisplaced. No other findings.), See rad report PD MEDICAL DECISION MAKING - ED course Complexity details: reviewed results (CT showing lateral acetabulum small fracture, nondisplaced. This finding would correspond with her symptoms. ), considered differential, d/w patient, d/w trial consultant (discussed with Dr. Camarillo who was available by phone even though he is not risk consultant (very nice of him). Treat with nonweight bearing for a month. Follow up in a week. ) Departure - Departure Disposition: Home, Self Care Clinical Impression: Fall from slipping on ice Qualifiers: Encounter type: initial encounter Qualified Code(s): W00.9XXA - Unspecified fall due to ice and snow, initial encounter Acetabular fracture Qualifiers: Encounter type: initial encounter Sublocation of acetabulum: unspecified portion of acetabulum Fracture type: closed Fracture alignment: nondisplaced Laterality: right Qualified Code(s): S32.401A - Unspecified fracture of right ac etabulum, initial encounter for closed fracture Condition: Stable Record reviewed to determine appropriate education?: Yes Instructions: ED Fx Pelvis Follow-Up: Saleem Suazo MD [Primary Care Provider] - Bill Camarillo MD [Provider Admit Priv/Credential] - Prescriptions: Acetaminophen [Acetaminophen Extra Strength] 500 mg PO QID PRN #50 tablet PRN Reason: Pain Docusate Sodium 100Mg Capsule [Colace 100Mg Capsule] 100 mg PO DAILY #20 cap Naproxen 250 mg PO TID 7 Days #20 tablet oxyCODONE [Roxicodone] 5 mg PO Q6H PRN #20 tablet PRN Reason: Pain Comments: You were CT scan shows a small lateral acetabular fracture which is the cup part of where the hip bone fits. This would explain your symptoms. You could be some soft tissue injury in the pelvis as well. These initially would be treated with similar treatment of nonweightbearing with minimal motion and some stretching exercises though. I was able to talk with our orthopedist by phone about your injury. He states these would typically be treated with nonweightbearing using crutches for about 4 weeks to allow proper healing of the area. We can use a combination of anti-inflammatories such as naproxen 3 times daily with food. Also Tylenol 4 times daily regularly initially for the first week or so and then decrease to as needed. To these add oxycodone 1 to 2 tablets every 6 hours if needed for worse pain. Commonly would use some stool softeners while being treated for these to reduce chances of constipation. Use your crutches for nonweightbearing for the next month. Follow-up with Dr. Camarillo, orthopedics, in about a week or so for recheck. Call Monday morning for an appointment. Tell them that you were seen here in the ER and we did talk with Dr. Camarillo. Follow-up with your primary care as well as needed. I transmitted your prescriptions to [facility] in [place]. I am prescribing a short course of narcotic pain medication for you. These are potentially dangerous and addictive medications that should be used carefully. These medications may constipate you. Take an [id number] stool softener such as docusate twice daily with plenty of water while taking these medications. If you go 24 hours without a bowel movement, take [id number] MiraLAX, per package instructions. Do not drink or drive while taking these medications. If you received narcotic or sedating medications while in the emergency department do not drive for 24 hours. Store this medication in a safe, secure place and out of reach of children. It is a violation of federal law to give or sell this medication to another person or to use in a manner other than prescribed. The ED will not refill narcotic prescriptions, including prescriptions lost or stolen. You can dispose of unwanted medications at the [facility]'s office or at several pharmacies such as [facility]. Discharge Date/Time: 10/23/21 15:46
[2021-10-23 15:20] VITALS: BP 137/89
== END 2021-10-23 15:46 | disposition home or self-care (01) ==
LOC: ED 12:57
DX: S32.401A Unspecified fracture of right acetabulum, initial encounter for closed fracture (principal); W00.0XXA Fall on same level due to ice and snow, initial encounter; I10 Essential (primary) hypertension; F17.200 Nicotine dependence, unspecified, uncomplicated
CPT/HCPCS: 72192; 96372; 99282; 99284; A9270; J1170

== ENCOUNTER 2021-11-25 11:15 | Outpatient (CLI) | payer OTHER ==
--- NOTE | 2021-11-25 13:13 | XRAY Report ---
PROCEDURE: Pelvis 3 View INDICATIONS: PELVIC PAIN TECHNIQUE: 3 view(s) of the pelvis acquired. COMPARISON: CT pelvis without, such . FINDINGS: Bones: No fractures or dislocations. No suspicious bony lesions. Mild hip and sacroiliac joint deg eneration bilaterally. Soft tissues: Visualized bowel gas pattern is normal. No suspicious soft tissue calcifications. IMPRESSION: 1. No definitive fractures. Given persistent pain, MRI is recommended for further evaluation. 2. Mild degenerative joint disease in hips and sacrum iliac joints bilaterally. Reviewed by: Jayla Lee MD on 11/25/2021 1:11 PM PDT Approved by: Jayla Lee MD on 11/25/2021 1:11 PM PDT Station ID: [id number]
== END 2021-11-25 23:59 | disposition home or self-care (01) ==
LOC: DI.WOS 11:15
PROVIDERS: ATTEND Orthopaedic Surgery
DX: R10.2 Pelvic and perineal pain (principal); M16.0 Bilateral primary osteoarthritis of hip; M47.818 Spondylosis without myelopathy or radiculopathy, sacral and sacrococcygeal region

== ENCOUNTER 2021-12-01 09:05 | Day surgery (SDC) | payer OTHER ==
[2021-12-01] MEDS ORDERED: CEFAZOLIN SODIUM IN 0.9 % NACL 2 GM/50 ML BAG IV ONE (09:48)
[2021-12-01] MEDS ORDERED: CELECOXIB 100 MG CAPSULE PO ONE (09:48)
[2021-12-01] MEDS ORDERED: ACETAMINOPHEN 500 MG TABLET PO ONE (09:48)
[2021-12-01] MEDS ORDERED: LACTATED RINGERS 1,000 ML IV ONE ×2 (10:01→15:28)
[2021-12-01 10:50] LABS: BASOPHILS # (AUTO) 0.1 10^3/uL (0.0-0.1); BASOPHILS % (AUTO) 1.2 %; EOSINOPHILS # (AUTO) 0.1 10^3/uL (0.0-0.7); EOSINOPHILS % (AUTO) 1.5 %; HCT - HEMATOCRIT 37.7 % (37.0-47.0); HGB - HEMOGLOBIN 12.8 g/dL (12.0-16.0); LYMPHOCYTES # (AUTO) 2.4 10^3/uL (1.5-3.5); LYMPHOCYTES % (AUTO) 46.5 %; MEAN CORPUSCULAR HEMOGLOBIN 31.5 pg (27.0-31.0); MEAN CORPUSCULAR VOLUME 92.9 fL (81.0-99.0); MEAN PLATELET VOLUME 9.4 fL (7.9-10.8); MONOCYTES # (AUTO) 0.4 10^3/uL (0.0-1.0); MONOCYTES % (AUTO) 7.5 %; NEUTROPHILS # (AUTO) 2.2 10^3/uL (1.5-6.6); NEUTROPHILS % (AUTO) 43.3 %; PLT - PLATELET COUNT 256 10^3/uL (130-450); RED BLOOD COUNT 4.06 10^6/uL (4.20-5.40); RED CELL DISTRIBUTION WIDTH 12.5 % (12.0-15.0); WHITE BLOOD COUNT 5.2 x10^3/uL (4.8-10.8)
[2021-12-01 11:03] LABS: ALBUMIN 4.2 g/dL (3.2-5.5); ALBUMIN/GLOBULIN RATIO 1.4 (1.0-2.2); BILIRUBIN,TOTAL 0.4 mg/dL (0.2-1.0); CALCIUM 8.8 mg/dL (8.5-10.3); CREATININE 0.6 mg/dL (0.4-1.0); POTASSIUM 3.8 mmol/L (3.5-5.0); TOTAL PROTEIN 7.1 g/dL (6.7-8.2)
[2021-12-01] MEDS: GABAPENTIN 400 MG CAPSULE ONE ×2 (11:10→11:23)
--- NOTE | 2021-12-01 11:44 | ANESTHESIA ---
Pre-Anesthesia VS, & Labs - Diagnosis femoral neck fracture right hip - Procedure percutaneous screw fixation right hip Vital Signs: Temp Pulse Resp BP Pulse Ox 37.0 C 51 L 14 111/85 H 100 12/01/21 11:04 12/01/21 11:04 12/01/21 11:04 12/01/21 11:04 12/01/21 11:04 Height: 5 ft 7 in Weight (kg): 139 kg Body Mass Index: 47.9 BMI Classification: Morbidly Obese - NPO >8 hours - Is Patient ?: No - Lab Results Current Lab Results: Laboratory Tests 12/01/21 10:45: POC Whole Bld Glucose 97 12/01/21 10:45: Sodium 137, Potassium 3.8, Chloride 106, Carbon Dioxide 22, Anion Gap 9.0, BUN 16, Creatinine 0.6, Estimated GFR (MDRD) 105, Glucose 89, Calcium 8.8, Total Bilirubin 0.4, AST 16, ALT 10, Alkaline Phosphatase 82, Total Protein 7.1, Albumin 4.2, Globulin 2.9, Albumin/Globulin Ratio 1.4 12/01/21 10:45: WBC 5.2, RBC 4.06 L, Hgb 12.8, Hct 37.7, MCV 92.9, MCH 31.5 H, MCHC 34.0, RDW 12.5, Plt Count 256, MPV 9.4, Neut # (Auto) 2.2, Lymph # (Auto) 2.4, [place] # (Auto) 0.4, Eos # (Auto) 0.1, Baso # (Auto) 0.1, Absolute Nucleated RBC 0.00, Nucleated RBC % 0.0 Fish Bones: 12/01/21 10:45 12/01/21 10:45 Home Medications and Allergies clonazePAM [Clonazepam] 1 mg PO TID PRN 07/14/13 Eszopiclone [Lunesta] 3 mg PO HS PRN 10/23/21 Progesterone,Micronized [Prometrium] 200 mg PO HS 10/23/21 cloNIDine [Catapres] 0.2 mg PO TID 10/23/21 estradioL [Estradiol] 5 mg PO DAILY 10/23/21 Allergies/Adverse Reactions: Allergies Allergy/AdvReac Type Severity Reaction Status Date / Time iodine Allergy Severe Rash Verified 10/23/21 13:09 morphine Allergy Severe Hives Verified 10/23/21 13:09 adhesive tape Allergy Intermediate Rash Verified 10/23/21 13:09 contrast Allergy Severe Respiratory Uncoded 10/23/21 13:09 Anes History & Medical History - Anesthetic History Anesthesia Complications: reports: Post-Operative Nausea/Vomiting - Medical History Cardiovascular: reports: Hypertension Pulmonary: reports: None Gastrointestinal: reports: GI bleed, Other Urinary: reports: Kidney stones Neuro: reports: None Musculoskeletal: reports: Osteoarthritis, Other Endocrine/Autoimmune: reports: None Blood Disorders: reports: Anemia Skin: reports: Other drug resistant infections Smoking Status: Current every day smoker History of Cancer?: No - Surgical History General: reports: Cholecystectomy, Appendectomy Orthopedic: reports: Spine surgery, Arthroscopic surgery Exam General: Alert, Oriented x3 Dental: WNL Mouth Opening: Greater than 4 Fingerbreadths Neck Mobility: Normal Mallampati classification: I Respiratory: Lungs clear, Normal breath sounds Cardiovascular: Regular rate, Normal S1, Normal S2 Plan Anesthesia Type: General, Fascia Iliaca Block Consent for Procedure(s) Verified and Reviewed: Yes Code Status: Attempt Resuscitation ASA classification: 2-Mild systemic disease Is this case an emergency?: No
[2021-12-01] MEDS ORDERED: METOCLOPRAMIDE 10 MG/2 ML VIAL IVP PRN (11:52)
[2021-12-01] MEDS ORDERED: NALOXONE 0.4 MG/ML VIAL IVP PRN (11:52)
[2021-12-01] MEDS ORDERED: ePHEDrine 50 MG/ML VIAL IVP PRN (11:52)
[2021-12-01] MEDS ORDERED: HYDROmorphone 0.5 MG/0.5 ML SYRINGE IVP PRN (11:52)
[2021-12-01] MEDS ORDERED: ATROPINE ABBOJECT 1 MG/10 ML SYRINGE IVP PRN (11:52)
[2021-12-01] MEDS ORDERED: ONDANSETRON 4 MG/2 ML VIAL IVP PRN (11:52)
[2021-12-01] MEDS ORDERED: fentaNYL 100 MCG/2 ML VIAL IVP PRN (11:52)
[2021-12-01] MEDS ORDERED: LACTATED RINGERS 1,000 ML IV SCH (12:00)
[2021-12-01] MEDS ORDERED: MIDAZOLAM 2 MG/2 ML VIAL ONE (12:22)
[2021-12-01] MEDS ORDERED: fentaNYL 100 MCG/2 ML VIAL ONE ×2 (12:22→15:01)
[2021-12-01] MEDS ORDERED: LIDOCAINE-MPF 2% 5 ML VIAL ONE (12:22)
[2021-12-01] MEDS ORDERED: DEXAMETHASONE 4 MG/ML VIAL ONE (12:22)
[2021-12-01] MEDS ORDERED: ONDANSETRON 4 MG/2 ML VIAL ONE (12:22)
[2021-12-01] MEDS ORDERED: ROCURONIUM 50 MG/5 ML VIAL ONE ×2 (12:22→12:27)
[2021-12-01] MEDS ORDERED: PROPOFOL 200 MG/20 ML VIAL IVP ONE (12:22)
[2021-12-01] MEDS ORDERED: ROPIVACAINE 0.5% PF 30 ML VIAL ONE (12:28)
[2021-12-01] MEDS ORDERED: oxyCODONE 5 MG TABLET PO PRN (12:36)
[2021-12-01] MEDS ORDERED: KETOROLAC 15 MG/ML VIAL IVP STA (12:36)
[2021-12-01] MEDS ORDERED: BUPIVACAINE 0.25% PF 10 ML VIAL ONE (12:38)
[2021-12-01] MEDS ORDERED: BUPIVACAINE 0.25% PF 30 ML VIAL SUBQ ONE ×2 (13:41)
--- NOTE | 2021-12-01 14:18 | OPERATIVE REPORT ---
Operative Report - General Procedure Date: 12/01/21 Planned Procedure: Percutaneous cannulated screw fixation femoral neck fracture right hip Pre-Op Diagnosis: Nondisplaced femoral neck fracture right hip Procedure Performed: Percutaneous cannulated screw fixation femoral neck fracture using Synthes 7.3 mm cannulated stainless steel screws Post Op Diagnosis: Same as preoperative diagnosis - Procedure Note Primary Surgeon: Bill Camarillo MD Secondary Surgeon: Jada Salas PAC Anesthesia Provider: Heike Vogel CRNA Anesthesia Technique: General ET tube, Regional block Estimated Blood Loss (mL): 3 Indications: This is a 51-year-old woman with a history of fall that occurred in September of this year when she slipped on ice in [place], [place]. She has had persistence of pain to her right hip and upper thigh with weightbearing. She has seen an orthopedist in [place] who apparently did not feel she had a fracture of her hip. She appeared to have normal x-rays at that visit. I recently saw the patient who is having difficulty with weightbearing because of pain in the right groin and upper thigh. She had painful movement of the right hip and a positive Stinchfield test. Her x-rays were reviewed including routine x-rays and CT. Her x-rays were not definitive an MRI scan was obtained yesterday which was conclusive and showing a nondisplaced femoral neck fracture of the right hip. The fractures seem to be most notable on the inferior or compressive side of the femoral neck but also seem to engage the superior cortex as well. Because of the persistence of pain and associated risk of displacement, she was in agreement to surgery consisting of a percutaneous cannulated screw fixation of femoral neck fracture right hip. She signed an informed consent at my office prior to surgery. She was seen in the emergency room last night by Dr. Zambrano and I saw her this morning in my office to review the MRI findings and my recommendations. Findings: No obvious fracture was present on C arm image intensifier. Previous documentation of Hip fracture has been made with MRI scan and CT scan. Complications: None - Other Other Information/Narrative: The patient was brought to the operating room. She was given a general endotracheal anesthetic and this was supplemented with a fascia iliac block. She was placed supine on the Streetman fracture table with the right leg in boot traction and the left leg in a well-leg holt. The right leg was placed in a neutral position with regard to the hip, no traction utilized. The C arm image intensifier was sterilely draped and used intermittently during the procedure. A timeout procedure was performed by the entire operating room team and all were in agreement. The right lower extremity had been prepped and draped in a sterile manner in the usual fashion. The C-arm image intensifier was brought in to obtain multiplanar imaging of right hip. A 1 cm incision was made approximately 2 fingerbreadths distal to the greater trochanter base. The cannulated screw guide was inserted using C arm image intensifier in AP and lateral views. The first pin was placed in the inferior side of the femoral neck and 2 additional parallel guide pins were inserted to form a triangular pattern with divergence within the femoral head. A tangential view was obtained on the lateral view. The depth of the guide pins were measured. Short threaded lag screws, 85 mm in length were inserted. A washer was used on the most superior screw. The position of the screws appeared to be well within the neck and head of the proximal right femur. The distalmost screw was inserted slightly above the lesser trochanter. Rotational views under live fluoroscopy was obtained and all the screws appeared to be contained within bone. The incisions were closed with simple 3-0 nylon, sterile dressing and no plastic adhesive dressing as there is history of allergy to plastic. She received 2 g of Ancef intravenously. She tolerated the procedure well. There is no clinical deformity and there was good motion to right hip.A physician photographer assistant was utilized to help with positioning, retraction, wound closure and dressing.
[2021-12-01] MEDS ORDERED: LACTATED RINGERS 250 ML IV ONE (14:46)
[2021-12-01] MEDS ORDERED: HYDROmorphone 0.5 MG/0.5 ML SYRINGE ONE (15:18)
--- NOTE | 2021-12-01 15:47 | ANESTHESIA POST OP EVALUATION ---
Anesthesia Post Eval - Post Anesthesia Eval Vitals: Last Vital Signs Temp 36.4 C L 12/01/21 15:29 Pulse 59 L 12/01/21 15:29 Resp 16 12/01/21 15:29 BP 150/93 H 12/01/21 15:29 Pulse Ox 100 12/01/21 15:29 CV Function Including HR & BP: Stable Pain Control: Satisfactory Nausea & Vomiting: Negative Mental Status: Baseline Respiratory Status: Airway Patent Hydration Status: Satisfactory Anesthesia Complications: None
[2021-12-01] MEDS ORDERED: oxyCODONE 5 MG TABLET ONE (16:06)
[2021-12-01 16:12] VITALS: BP 153/95
--- NOTE | 2021-12-01 16:16 | XRAY Report ---
PROCEDURE: OR C-Arm Procedure INDICATIONS: HIP PINNING TECHNIQUE: 2 intraoperative fluoroscopic images of right hip were obtained. COMPARISON: Pelvic radiograph dated 11/25/2021. FINDINGS: Intraoperative fluoroscopic images show surgical pinning of right femoral neck with [address] Total fluoroscopy time is 40 seconds. IMPRESSION: Fluoroscopy guidance was provided intraoperatively for surgical pinning of right femoral neck. Reviewed by: Endy Mendoza MD on 12/01/2021 4:15 PM PDT Approved by: Endy Mendoza MD on 12/01/2021 4:15 PM PDT Station ID: [id number]
[2021-12-03 16:01] LABS: THYROID PEROXIDASE ANTIBODIES 292 IU/mL (<9)
== END 2021-12-01 09:06 | disposition home or self-care (01) ==
LOC: SDS 09:05
PROVIDERS: ATTEND Orthopaedic Surgery
DX: S72.001A Fracture of unspecified part of neck of right femur, initial encounter for closed fracture (principal); F41.9 Anxiety disorder, unspecified; I10 Essential (primary) hypertension; F17.210 Nicotine dependence, cigarettes, uncomplicated; E66.01 Morbid (severe) obesity due to excess calories; Z68.42 Body mass index [BMI] 45.0-49.9, adult
CPT/HCPCS: 27235; 36415; 80053; 82306; 85025; 86376; 86800; A9270; J0690; J1170; J7120

== ENCOUNTER 2022-01-17 06:00 | Outpatient (CLI) | payer OTHER ==
--- NOTE | 2022-01-17 14:10 | XRAY Report ---
PROCEDURE: Hip 2 View RT INDICATIONS: HIP FIXATION TECHNIQUE: 2 views of the hip were acquired. COMPARISON: X-ray pelvis 11/25/2021 FINDINGS: Bones: Right femoral pin fixation is present. There is good anatomic alignment. All hardware is No archer spicious bony lesions. The visualized pelvic ring appears intact. Soft tissues: No suspicious soft tissue calcifications or masses. IMPRESSION: Right femoral fixation as above. Reviewed by: Silvia Bah MD on 01/17/2022 2:08 PM PDT Approved by: Silvia Bah MD on 01/17/2022 2:08 PM PDT Station ID: [id number]
== END 2022-01-17 23:59 | disposition home or self-care (01) ==
LOC: DI.WOS 06:00
PROVIDERS: ATTEND Orthopaedic Surgery
DX: M84.351D Stress fracture, right femur, subsequent encounter for fracture with routine healing (principal)

== ENCOUNTER 2022-03-07 08:00 | Outpatient (CLI) | payer OTHER ==
--- NOTE | 2022-03-07 15:56 | XRAY Report ---
PROCEDURE: Hip 2 View RT INDICATIONS: HIP FX TECHNIQUE: 2 views of the hip were acquired. COMPARISON: X-ray hip 01/17/2022, 11/25/2021 FINDINGS: Bones: Right hip pin fixation is present. Hardware is intact without evidence of hardware fracture or periprosthetic lucency to suggest loosening. No suspicious bony lesions. The visualized pelvic ring appears intact. Soft tissues: No suspicious soft tissue calcifications or masses. IMPRESSION: Stable right femoral fixation Reviewed by: Silvia Bah MD on 03/07/2022 3:55 PM PDT Approved by: Silvia Bah MD on 03/07/2022 3:55 PM PDT Station ID: [id number]
== END 2022-03-07 23:59 | disposition home or self-care (01) ==
LOC: DI.WOS 08:00
PROVIDERS: ATTEND Orthopaedic Surgery
DX: M84.351D Stress fracture, right femur, subsequent encounter for fracture with routine healing (principal)

== ENCOUNTER 2022-05-16 08:00 | Outpatient (CLI) | payer OTHER ==
--- NOTE | 2022-05-16 15:50 | XRAY Report ---
PROCEDURE: Femur RT INDICATIONS: FEMUR ORIF CONTINUED PAIN TECHNIQUE: 2 views of the femur were acquired. COMPARISON: 05/09/2022 plain films FINDINGS: Bones: No fractures or dislocations. No suspicious bony lesions. ORIF of the right femoral neck. Soft tissues: No suspicious soft tissue calcifications or masses. IMPRESSION: Postsurgical sequelae No acute fracture. No osseous lesion. If symptoms and/or clinical suspicion for pathology continue, further assessment with repeat plain films, or advanced imaging (e.g., CT, MRI, or bone scan) is recommended for further assessment. Reviewed by: Ariana Billy MD on 05/16/2022 3:49 PM PDT Approved by: Ariana Billy MD on 05/16/2022 3:49 PM PDT Station ID: [id number]
== END 2022-05-16 23:59 | disposition home or self-care (01) ==
LOC: DI.WOS 08:00
PROVIDERS: ATTEND Orthopaedic Surgery
DX: M84.351D Stress fracture, right femur, subsequent encounter for fracture with routine healing (principal)

== ENCOUNTER 2022-05-25 15:47 | Emergency (ER) | payer OTHER ==
--- OUTSIDE RECORDS SUMMARY | 2022-05-25 15:59 | EXTERNAL MEDICAL SUMMARY RPT | Continuity of Care Document ---
:[address] Address [address] [place] [address] Phone Allergies and Intolerances date description facility type (no date) [facility] (unknown) Encounters No information. Functional Status No information. Immunizations No information. Medications No information. Problems No information. Procedures No information. Results/Labs test date author facility value unit interpret ation Result panel 1 (unknown) (no date) (unknown) (unknown) (no value) (units (un known) unknown) (unknown) (no date) (unknown) (unknown) [id number] (units (unkn own) unknown) (unknown) (no date) (unknown) (unknown) 05/13/22 (units (unkn own) unknown) (unknown) (no date) (unknown) (unknown) [id number] [address]units ([address] n[address]) [address] unknown) (unknown) (no date) (unknown) (unknown) Accession (units (unk nown) Number: unknown) [id number] (unknown) (no date) (unknown) (unknown) Age/Sex: 51 / (units (unknown) F Date of unknown) Service: (unknown) (no date) (unknown) (unknown) [place], [place] (units (unknown) [id number] unknown) (unknown) (no date) (unknown) (unknown) Approved by: (units ( unknown) Jayla Lee M.D. unknown) on 05/13/2022 at 17:22 (unknown) (no date) (unknown) (unknown) Bones: No (units (unk nown) fractures or unknown) dislocations. No suspicious bony lesions. (unknown) (no date) (unknown) (unknown) COMPARISON: (units (u nknown) None. unknown) (unknown) (no date) (unknown) (unknown) : (units (unkn own) 1970 unknown) Acct:[id number] (unknown) (no date) (unknown) (unknown) Dictated by: (units ( unknown) Jayla Lee M.D. unknown) on 05/13/2022 at 17:20 (unknown) (no date) (unknown) (unknown) FINDINGS: (units (unk nown) unknown) (unknown) (no date) (unknown) (unknown) IMPRESSION: No (units (unknown) acute osseous unknown) abnormalities. If clinical symptoms persist or (unknown) (no date) (unknown) (unknown) INDICATIONS: (units ( unknown) knee pain unknown) (unknown) (no date) (unknown) (unknown) [facility] (unknown) (no date) (unknown) (unknown) Loc: ED (units (unkn own) unknown) (unknown) (no date) (unknown) (unknown) Ordering (units (unkn own) Provider: unknown) Aníbal Lopez D.O. (unknown) (no date) (unknown) (unknown) PROCEDURE: XR (units (unknown) KNEE RT 3V unknown) (unknown) (no date) (unknown) (unknown) Patient: (units (unkn own) HEIKE ANGELES unknown) MR#: [id number] (unknown) (no date) (unknown) (unknown) Procedure: XR (units (unknown) knee RT 3V unknown) (unknown) (no date) (unknown) (unknown) Signed (units (unkn own) unknown) (unknown) (no date) (unknown) (unknown) Soft tissues: (units (unknown) No joint unknown) effusion. No suspicious soft tissue calcifications. (unknown) (no date) (unknown) (unknown) TECHNIQUE: 3 (units ( unknown) views of the unknown) knee were acquired. (unknown) (no date) (unknown) (unknown) XRay Report (units (u nknown) unknown) (unknown) (no date) (unknown) (unknown) clinical (units (unkn own) unknown) (unknown) (no date) (unknown) (unknown) imaging (units (unkn own) unknown) (unknown) (no date) (unknown) (unknown) such as CT or (units (unknown) MRI is unknown) suggested for further evaluation. (unknown) (no date) (unknown) (unknown) suspicion for (units (unknown) pathology is unknown) high, a repeat examination in 7-10 days, or advanced Result panel 2 (unknown) (no date) (unknown) (unknown) (no value) (units (un known) unknown) (unknown) (no date) (unknown) (unknown) [id number] (units (unkn own) unknown) (unknown) (no date) (unknown) (unknown) 05/13/22 16:26 (units (unknown) unknown) (unknown) (no date) (unknown) (unknown) 05/13/22 (units (unkn own) unknown) (unknown) (no date) (unknown) (unknown) 15:55 (units (unkn own) unknown) (unknown) (no date) (unknown) (unknown) Age/Sex: 51 / (units (unknown) F unknown) (unknown) (no date) (unknown) (unknown) Blood Pressure (units (unknown) 137/77 05/13/22 unknown) 15:55 (unknown) (no date) (unknown) (unknown) Blood Pressure (units (unknown) 137/77 unknown) (unknown) (no date) (unknown) (unknown) Chief (units (unkn own) complaint: unknown) Extremity Problem,Nontrau matic (unknown) (no date) (unknown) (unknown) Course (units (unkn own) unknown) (unknown) (no date) (unknown) (unknown) : (units (unkn own) 1970 unknown) Acct:[id number] (unknown) (no date) (unknown) (unknown) Date of (units (unkn own) Service: unknown) 05/13/22 (unknown) (no date) (unknown) (unknown) Departure (units (unk nown) unknown) (unknown) (no date) (unknown) (unknown) Discharge Plan (units (unknown) unknown) (unknown) (no date) (unknown) (unknown) ED Orders (units (unk nown) unknown) (unknown) (no date) (unknown) (unknown) ER Physician: (units (unknown) Aníbal Lopez unknown) D.O. (unknown) (no date) (unknown) (unknown) Emergency (units (unk nown) Report unknown) (unknown) (no date) (unknown) (unknown) Exam (units (unkn own) unknown) (unknown) (no date) (unknown) (unknown) Saleem Suazo (units (un known) MD Joel unknown) [Primary Care Provider] (unknown) (no date) (unknown) (unknown) General (units (unkn own) unknown) (unknown) (no date) (unknown) (unknown) HPI - (units (unkn own) Extremity unknown) Problem (unknown) (no date) (unknown) (unknown) Initial Vital (units (unknown) Signs unknown) (unknown) (no date) (unknown) (unknown) Initial Vital (units (unknown) Signs: unknown) (unknown) (no date) (unknown) (unknown) [place] (units (unkn own) [facility] [address] unknown) [address] [place] [id number] (unknown) (no date) (unknown) (unknown) Medical (units (unkn own) History unknown) (Updated 12/15/21 @ 00:00 by ) (unknown) (no date) (unknown) (unknown) Mode of (units (unkn own) arrival: Family unknown) Vehicle (unknown) (no date) (unknown) (unknown) No significant (units (unknown) past medical unknown) history (unknown) (no date) (unknown) (unknown) No significant (units (unknown) past surgical unknown) history (unknown) (no date) (unknown) (unknown) Ordered: (units (unkn own) unknown) (unknown) (no date) (unknown) (unknown) Orders (units (unkn own) unknown) (unknown) (no date) (unknown) (unknown) Oxygen (units (unkn own) Delivery Method unknown) 05/13/22 15:55 (unknown) (no date) (unknown) (unknown) Oxygen (units (unkn own) Delivery Method unknown) Room Air (unknown) (no date) (unknown) (unknown) Patient (units (unkn own) History unknown) (unknown) (no date) (unknown) (unknown) Patient: (units (unkn own) HEIKE ANGELES unknown) MR#: [id number] (unknown) (no date) (unknown) (unknown) Pulse Oximetry (units (unknown) 95 05/13/22 unknown) 15:55 (unknown) (no date) (unknown) (unknown) Pulse Oximetry (units (unknown) 95 unknown) (unknown) (no date) (unknown) (unknown) Pulse Rate 50 (units (unknown) L 05/13/22 unknown) 15:55 (unknown) (no date) (unknown) (unknown) Pulse Rate 50 (units (unknown) L unknown) (unknown) (no date) (unknown) (unknown) Referrals: (units (un known) unknown) (unknown) (no date) (unknown) (unknown) Respiratory (units (u nknown) Rate 19 unknown) 05/13/22 15:55 (unknown) (no date) (unknown) (unknown) Respiratory (units (u nknown) Rate 19 unknown) (unknown) (no date) (unknown) (unknown) Signed By: (units (un known) unknown) (unknown) (no date) (unknown) (unknown) Smoking (units (unkn own) Status: Former unknown) smoker (unknown) (no date) (unknown) (unknown) Social History (units (unknown) (Reviewed unknown) 11/30/21 @ 21:43 by Wilian Zambrano MD) (unknown) (no date) (unknown) (unknown) Source: (units (unkn own) patient unknown) (unknown) (no date) (unknown) (unknown) Stated (units (unkn own) complaint: Hip unknown) fracture surgery in november, Worsening pain (unknown) (no date) (unknown) (unknown) Substance Use (units (unknown) Type: marijuana unknown) (unknown) (no date) (unknown) (unknown) Surgical (units (unkn own) History unknown) (Updated 11/30/21 @ 21:43 by Wilian Zambrano MD) (unknown) (no date) (unknown) (unknown) Temperature (units (u nknown) 98.6 F 05/13/22 unknown) 15:55 (unknown) (no date) (unknown) (unknown) Temperature (units (u nknown) 98.6 F unknown) (unknown) (no date) (unknown) (unknown) Time Seen by (units ( unknown) Provider: unknown) 05/13/22 16:14 (unknown) (no date) (unknown) (unknown) Vital Signs - (units (unknown) 8 hr unknown) (unknown) (no date) (unknown) (unknown) Vital Signs (units (u nknown) unknown) (unknown) (no date) (unknown) (unknown) Vital signs: (units ( unknown) unknown) (unknown) (no date) (unknown) (unknown) XR knee RT 3V (units (unknown) Stat unknown) (unknown) (no date) (unknown) (unknown) alcohol intake (units (unknown) frequency: 0-2 unknown) drinks per day (unknown) (no date) (unknown) (unknown) tobacco type: (units (unknown) cigarettes unknown) Result panel 3 (unknown) (no (unknown) (unknown) (no value) (units (unk nown) date) unknown) (unknown) (no (unknown) (unknown) [id number] (units (unkno wn) date) unknown) (unknown) (no (unknown) (unknown) 05/13/22 16:26 (units (unknown) date) unknown) (unknown) (no (unknown) (unknown) 05/13/22 (units (unkno wn) date) unknown) (unknown) (no (unknown) (unknown) 15:55 (units (unkno wn) date) unknown) (unknown) (no (unknown) (unknown) Age/Sex: 51 / F (units (unknown) date) unknown) (unknown) (no (unknown) (unknown) Blood Pressure (units (unknown) date) 137/77 05/13/22 unknown) 15:55 (unknown) (no (unknown) (unknown) Blood Pressure (units (unknown) date) 137 unknown) (unknown) (no (unknown) (unknown) Cardio (units (unkno wn) date) unknown) (unknown) (no (unknown) (unknown) Chief complaint: (units (unknown) date) Extremity unknown) Problem,Nontraumat ic (unknown) (no (unknown) (unknown) Const (units (unkno wn) date) unknown) (unknown) (no (unknown) (unknown) Constitutional (units (unknown) date) unknown) (unknown) (no (unknown) (unknown) Constitutional: (units (unknown) date) Denies fever(s) unknown) (unknown) (no (unknown) (unknown) Course (units (unkno wn) date) unknown) (unknown) (no (unknown) (unknown) : 1970 (units (unknown) date) Acct:[id number] unknown) (unknown) (no (unknown) (unknown) Date of Service: (units (unknown) date) 05/13/22 unknown) (unknown) (no (unknown) (unknown) Departure (units (unkn own) date) unknown) (unknown) (no (unknown) (unknown) Discharge Plan (units (unknown) date) unknown) (unknown) (no (unknown) (unknown) ED Orders (units (unkn own) date) unknown) (unknown) (no (unknown) (unknown) ER Physician: (units ( unknown) date) Aníbal Lopez unknown) D.O. (unknown) (no (unknown) (unknown) Effort + (units (unkno wn) date) Inspection: normal unknown) respiratory effort (unknown) (no (unknown) (unknown) Emergency Report (units (unknown) date) unknown) (unknown) (no (unknown) (unknown) Exam (units (unkno wn) date) unknown) (unknown) (no (unknown) (unknown) Extrem (units (unkno wn) date) unknown) (unknown) (no (unknown) (unknown) Saleem Suazo (units (unk nown) date) MD Joel unknown) [Primary Care Provider] (unknown) (no (unknown) (unknown) General (units (unkno wn) date) unknown) (unknown) (no (unknown) (unknown) General: (units (unkno wn) date) cooperative and unknown) healthy appearing (unknown) (no (unknown) (unknown) HENMT (units (unkno wn) date) unknown) (unknown) (no (unknown) (unknown) HPI - Extremity (units (unknown) date) Problem unknown) (unknown) (no (unknown) (unknown) HPI Narrative: (units (unknown) date) unknown) (unknown) (no (unknown) (unknown) Head: normal to (units (unknown) date) inspection unknown) (unknown) (no (unknown) (unknown) Healed surgical (units (unknown) date) scar as lateral unknown) upper thigh. No signs of infection. (unknown) (no (unknown) (unknown) Hematologic/Lymph (units (unknown) date) atic unknown) (unknown) (no (unknown) (unknown) History of (units (unk nown) date) Present Illness unknown) (unknown) (no (unknown) (unknown) Initial Vital (units ( unknown) date) Signs unknown) (unknown) (no (unknown) (unknown) Initial Vital (units ( unknown) date) Signs: unknown) (unknown) (no (unknown) (unknown) Integumentary/Fabby (units (unknown) date) asts unknown) (unknown) (no (unknown) (unknown) [facility] (units (unknown) date) [address]) [place] [address] (unknown) (no (unknown) (unknown) Medical History (units (unknown) date) (Reviewed 05/13/22 unknown) @ 16:46 by Aníbal Lopez DO) (unknown) (no (unknown) (unknown) Mode of arrival: (units (unknown) date) Family Vehicle unknown) (unknown) (no (unknown) (unknown) Musculoskeletal (units (unknown) date) unknown) (unknown) (no (unknown) (unknown) Musculoskeletal: (units (unknown) date) Reports system unknown) reviewed and no additional complaints, except as (unknown) (no (unknown) (unknown) Neuro (units (unkno wn) date) unknown) (unknown) (no (unknown) (unknown) Neurologic (units (unk nown) date) unknown) (unknown) (no (unknown) (unknown) Neurologic: (units (un known) date) Reports system unknown) reviewed and no additional complaints, except as (unknown) (no (unknown) (unknown) No significant (units (unknown) date) past medical unknown) history (unknown) (no (unknown) (unknown) No significant (units (unknown) date) past surgical unknown) history (unknown) (no (unknown) (unknown) On (units (unkno wn) date) Anticoagulants: No unknown) (unknown) (no (unknown) (unknown) Ordered: (units (unkno wn) date) unknown) (unknown) (no (unknown) (unknown) Orders (units (unkno wn) date) unknown) (unknown) (no (unknown) (unknown) Other: (units (unkno wn) date) unknown) (unknown) (no (unknown) (unknown) Oxygen Delivery (units (unknown) date) Method 05/13/22 unknown) 15:55 (unknown) (no (unknown) (unknown) Oxygen Delivery (units (unknown) date) Method Room Air unknown) (unknown) (no (unknown) (unknown) Patient History (units (unknown) date) unknown) (unknown) (no (unknown) (unknown) Patient does have (units (unknown) date) some tenderness unknown) along the lateral hamstring. Mild tenderness (unknown) (no (unknown) (unknown) Patient is a (units (u nknown) date) 51-year-old unknown) female. Earlier this year she was diagnosed with a (unknown) (no (unknown) (unknown) Patient: (units (unkno wn) date) HEIKE ANGELES unknown) MR#: [id number] (unknown) (no (unknown) (unknown) Pulse Oximetry 95 (units (unknown) date) 05/13/22 15:55 unknown) (unknown) (no (unknown) (unknown) Pulse Oximetry 95 (units (unknown) date) unknown) (unknown) (no (unknown) (unknown) Pulse Rate 50 L (units (unknown) date) 05/13/22 15:55 unknown) (unknown) (no (unknown) (unknown) Pulse Rate 50 L (units (unknown) date) unknown) (unknown) (no (unknown) (unknown) Rate: regular (units ( unknown) date) rate unknown) (unknown) (no (unknown) (unknown) Referrals: (units (unk nown) date) unknown) (unknown) (no (unknown) (unknown) Resp (units (unkno wn) date) unknown) (unknown) (no (unknown) (unknown) Respiratory Rate (units (unknown) date) 19 05/13/22 15:55 unknown) (unknown) (no (unknown) (unknown) Respiratory Rate (units (unknown) date) 19 unknown) (unknown) (no (unknown) (unknown) Review of Systems (units (unknown) date) unknown) (unknown) (no (unknown) (unknown) Sensory Exam: no (units (unknown) date) sensory deficits unknown) noted (unknown) (no (unknown) (unknown) Signed By: (units (unk nown) date) unknown) (unknown) (no (unknown) (unknown) Skin (units (unkno wn) date) unknown) (unknown) (no (unknown) (unknown) Skin/Breast: (units (u nknown) date) Reports system unknown) reviewed and no additional complaints, except as (unknown) (no (unknown) (unknown) Smoking Status: (units (unknown) date) Former smoker unknown) (unknown) (no (unknown) (unknown) Social History (units (unknown) date) (Reviewed 05/13/22 unknown) @ 16:46 by Aníbal Lopez DO) (unknown) (no (unknown) (unknown) Source: patient (units (unknown) date) unknown) (unknown) (no (unknown) (unknown) Stated complaint: (units (unknown) date) Hip fracture unknown) surgery in november, Worsening pain (unknown) (no (unknown) (unknown) Substance Use (units ( unknown) date) Type: marijuana unknown) (unknown) (no (unknown) (unknown) Surgical History (units (unknown) date) (Updated 11/30/21 unknown) @ 21:43 by Wilian Zambrano MD) (unknown) (no (unknown) (unknown) Temperature 98.6 (units (unknown) date) F 05/13/22 15:55 unknown) (unknown) (no (unknown) (unknown) Temperature 98.6 (units (unknown) date) F unknown) (unknown) (no (unknown) (unknown) Time Seen by (units (u nknown) date) Provider: 05/13/22 unknown) 16:14 (unknown) (no (unknown) (unknown) Vital Signs - 8 (units (unknown) date) hr unknown) (unknown) (no (unknown) (unknown) Vital Signs (units (un known) date) unknown) (unknown) (no (unknown) (unknown) Vital signs: (units (u nknown) date) unknown) (unknown) (no (unknown) (unknown) XR knee RT 3V (units ( unknown) date) Stat unknown) (unknown) (no (unknown) (unknown) afterwards she (units (unknown) date) was doing well. unknown) She was walking until 1 month ago when she (unknown) (no (unknown) (unknown) alcohol intake (units (unknown) date) frequency: 0-2 unknown) drinks per day (unknown) (no (unknown) (unknown) along the ITB (units ( unknown) date) band. Causes unknown) discomfort deep inside with flexion of the hip and (unknown) (no (unknown) (unknown) discomfort. She (units (unknown) date) contacted her unknown) orthopedic doctor's office who told her to come (unknown) (no (unknown) (unknown) documented (units (unk nown) date) unknown) (unknown) (no (unknown) (unknown) flexion extension (units (unknown) date) of the knee. unknown) (unknown) (no (unknown) (unknown) orthopedic doctor (units (unknown) date) 2 days ago. Had an unknown) injection. There was some question is (unknown) (no (unknown) (unknown) performed. She (units (unknown) date) stated that the unknown) x-rays were unremarkable. She continued to have (unknown) (no (unknown) (unknown) reports no new (units (unknown) date) injuries. States unknown) that it is worse when she stands on it and also (unknown) (no (unknown) (unknown) right hip (units (unkn own) date) fracture. Had pins unknown) placed in November this year. She states that (unknown) (no (unknown) (unknown) started to have (units (unknown) date) pain in her right unknown) hip and then pain in her right knee. She (unknown) (no (unknown) (unknown) to the emergency (units (unknown) date) department. unknown) (unknown) (no (unknown) (unknown) tobacco type: (units ( unknown) date) cigarettes unknown) (unknown) (no (unknown) (unknown) when she is (units (un known) date) sitting and unknown) standing from sitting. She went to go see her (unknown) (no (unknown) (unknown) whether not it (units (unknown) date) was the hardware unknown) causing the discomfort. She had x-rays Result panel 4 (unknown) (no (unknown) (unknown) (no value) (units (unk nown) date) unknown) (unknown) (no (unknown) (unknown) [id number] (units (unkno wn) date) unknown) (unknown) (no (unknown) (unknown) 05/13/22 16:26 (units (unknown) date) unknown) (unknown) (no (unknown) (unknown) 05/13/22 (units (unkno wn) date) unknown) (unknown) (no (unknown) (unknown) [address] [place] [address] (units (unknown) date) unknown) (unknown) (no (unknown) (unknown) 15:55 05/13/22 (units (unknown) date) unknown) (unknown) (no (unknown) (unknown) 16:49 (units (unkno wn) date) unknown) (unknown) (no (unknown) (unknown) ? (units (unkno wn) date) unknown) (unknown) (no (unknown) (unknown) Accession Number: (units (unknown) date) [id number] ?? unknown) (unknown) (no (unknown) (unknown) Acct:[id number] (units (unknown) date) unknown) (unknown) (no (unknown) (unknown) Age/Sex: 51 / F (units (unknown) date) unknown) (unknown) (no (unknown) (unknown) [place], [place] (units ( unknown) date) [id number] unknown) (unknown) (no (unknown) (unknown) Approved by: (units (u nknown) date) Jayla Lee M.D. on unknown) 05/13/2022 at 17:22 (unknown) (no (unknown) (unknown) Blood Pressure (units (unknown) date) 137/77 05/13/22 unknown) 15:55 (unknown) (no (unknown) (unknown) Blood Pressure (units (unknown) date) 137/77 130/70 unknown) (unknown) (no (unknown) (unknown) Bones:? No (units (unk nown) date) fractures or unknown) dislocations.? No suspicious bony lesions.? (unknown) (no (unknown) (unknown) COMPARISON:? (units (u nknown) date) None. unknown) (unknown) (no (unknown) (unknown) Cardio (units (unkno wn) date) unknown) (unknown) (no (unknown) (unknown) Chief complaint: (units (unknown) date) Extremity unknown) Problem,Nontraumat ic (unknown) (no (unknown) (unknown) Const (units (unkno wn) date) unknown) (unknown) (no (unknown) (unknown) Constitutional (units (unknown) date) unknown) (unknown) (no (unknown) (unknown) Constitutional: (units (unknown) date) Denies fever(s) unknown) (unknown) (no (unknown) (unknown) Course (units (unkno wn) date) unknown) (unknown) (no (unknown) (unknown) : 1970 (units (unknown) date) Acct:[id number] unknown) (unknown) (no (unknown) (unknown) : 1970 (units (unknown) date) unknown) (unknown) (no (unknown) (unknown) Date of Service: (units (unknown) date) 05/13/22 unknown) (unknown) (no (unknown) (unknown) Departure (units (unkn own) date) unknown) (unknown) (no (unknown) (unknown) Dictated by: (units (u nknown) date) Jayla Lee M.D. on unknown) 05/13/2022 at 17:20 ? ? (unknown) (no (unknown) (unknown) Discharge Plan (units (unknown) date) unknown) (unknown) (no (unknown) (unknown) ED Orders (units (unkn own) date) unknown) (unknown) (no (unknown) (unknown) ER Physician: (units ( unknown) date) Aníbal Lopez unknown) D.O. (unknown) (no (unknown) (unknown) Effort + (units (unkno wn) date) Inspection: normal unknown) respiratory effort (unknown) (no (unknown) (unknown) Emergency Report (units (unknown) date) unknown) (unknown) (no (unknown) (unknown) Exam (units (unkno wn) date) unknown) (unknown) (no (unknown) (unknown) Extrem (units (unkno wn) date) unknown) (unknown) (no (unknown) (unknown) Extremity x-ray (units (unknown) date) #1: unknown) (unknown) (no (unknown) (unknown) FINDINGS:? (units (unk nown) date) unknown) (unknown) (no (unknown) (unknown) Saleem Suazo (units (unk nown) date) MD Joel unknown) [Primary Care Provider] (unknown) (no (unknown) (unknown) General (units (unkno wn) date) unknown) (unknown) (no (unknown) (unknown) General: (units (unkno wn) date) cooperative and unknown) healthy appearing (unknown) (no (unknown) (unknown) HENMT (units (unkno wn) date) unknown) (unknown) (no (unknown) (unknown) HPI - Extremity (units (unknown) date) Problem unknown) (unknown) (no (unknown) (unknown) HPI Narrative: (units (unknown) date) unknown) (unknown) (no (unknown) (unknown) Head: normal to (units (unknown) date) inspection unknown) (unknown) (no (unknown) (unknown) Healed surgical (units (unknown) date) scar as lateral unknown) upper thigh. No signs of infection. (unknown) (no (unknown) (unknown) Hematologic/Lymph (units (unknown) date) atic unknown) (unknown) (no (unknown) (unknown) History of (units (unk nown) date) Present Illness unknown) (unknown) (no (unknown) (unknown) IMPRESSION:? No (units (unknown) date) acute osseous unknown) abnormalities.? If clinical symptoms persist or (unknown) (no (unknown) (unknown) INDICATIONS:? (units ( unknown) date) knee pain unknown) (unknown) (no (unknown) (unknown) Imaging Data (units (u nknown) date) unknown) (unknown) (no (unknown) (unknown) Initial Vital (units ( unknown) date) Signs unknown) (unknown) (no (unknown) (unknown) Initial Vital (units ( unknown) date) Signs: unknown) (unknown) (no (unknown) (unknown) Integumentary/Fabby (units (unknown) date) asts unknown) (unknown) (no (unknown) (unknown) [facility] (units (unknown) date) [address] unknown) [place] [address] (unknown) (no (unknown) (unknown) [facility] (units (unknown) date) unknown) (unknown) (no (unknown) (unknown) Loc: ED (units (unkno wn) date) unknown) (unknown) (no (unknown) (unknown) MDM - Extremity (units (unknown) date) (Nontraumatic) unknown) (unknown) (no (unknown) (unknown) MR#: [id number] (units (unknown) date) unknown) (unknown) (no (unknown) (unknown) Medical History (units (unknown) date) (Reviewed 05/13/22 unknown) @ 16:46 by Aníbal Lopez DO) (unknown) (no (unknown) (unknown) Mode of arrival: (units (unknown) date) Family Vehicle unknown) (unknown) (no (unknown) (unknown) Musculoskeletal (units (unknown) date) unknown) (unknown) (no (unknown) (unknown) Musculoskeletal: (units (unknown) date) Reports system unknown) reviewed and no additional complaints, except as (unknown) (no (unknown) (unknown) Neuro (units (unkno wn) date) unknown) (unknown) (no (unknown) (unknown) Neurologic (units (unk nown) date) unknown) (unknown) (no (unknown) (unknown) Neurologic: (units (un known) date) Reports system unknown) reviewed and no additional complaints, except as (unknown) (no (unknown) (unknown) No significant (units (unknown) date) past medical unknown) history (unknown) (no (unknown) (unknown) No significant (units (unknown) date) past surgical unknown) history (unknown) (no (unknown) (unknown) On (units (unkno wn) date) Anticoagulants: No unknown) (unknown) (no (unknown) (unknown) Ordered: (units (unkno wn) date) unknown) (unknown) (no (unknown) (unknown) Ordering (units (unkno wn) date) Provider: unknown) Aníbal Lopez D.O. (unknown) (no (unknown) (unknown) Orders (units (unkno wn) date) unknown) (unknown) (no (unknown) (unknown) Other: (units (unkno wn) date) unknown) (unknown) (no (unknown) (unknown) Oxygen Delivery (units (unknown) date) Method 05/13/22 unknown) 15:55 (unknown) (no (unknown) (unknown) Oxygen Delivery (units (unknown) date) Method Room Air unknown) (unknown) (no (unknown) (unknown) PROCEDURE:? XR (units (unknown) date) KNEE RT 3V unknown) (unknown) (no (unknown) (unknown) Patient History (units (unknown) date) unknown) (unknown) (no (unknown) (unknown) Patient does have (units (unknown) date) some tenderness unknown) along the lateral hamstring. Mild tenderness (unknown) (no (unknown) (unknown) Patient is a (units (u nknown) date) 51-year-old unknown) female. Earlier this year she was diagnosed with a (unknown) (no (unknown) (unknown) Patient: (units (unkno wn) date) HEIKE ANGELES unknown) MR#: [id number] (unknown) (no (unknown) (unknown) Patient: (units (unkno wn) date) HEIKE ANGELES unknown) (unknown) (no (unknown) (unknown) Procedure: XR (units ( unknown) date) knee RT 3V unknown) (unknown) (no (unknown) (unknown) Pulse Oximetry 95 (units (unknown) date) 05/13/22 15:55 unknown) (unknown) (no (unknown) (unknown) Pulse Oximetry 95 (units (unknown) date) 98 unknown) (unknown) (no (unknown) (unknown) Pulse Rate 50 L (units (unknown) date) 05/13/22 15:55 unknown) (unknown) (no (unknown) (unknown) Pulse Rate 50 L (units (unknown) date) 52 L unknown) (unknown) (no (unknown) (unknown) Radiologist's (units ( unknown) date) Impression: unknown) (unknown) (no (unknown) (unknown) Rate: regular (units ( unknown) date) rate unknown) (unknown) (no (unknown) (unknown) Referrals: (units (unk nown) date) unknown) (unknown) (no (unknown) (unknown) Resp (units (unkno wn) date) unknown) (unknown) (no (unknown) (unknown) Respiratory Rate (units (unknown) date) 19 05/13/22 15:55 unknown) (unknown) (no (unknown) (unknown) Respiratory Rate (units (unknown) date) 19 18 unknown) (unknown) (no (unknown) (unknown) Review of Systems (units (unknown) date) unknown) (unknown) (no (unknown) (unknown) Sensory Exam: no (units (unknown) date) sensory deficits unknown) noted (unknown) (no (unknown) (unknown) Signed By: (units (unk nown) date) unknown) (unknown) (no (unknown) (unknown) Signed (units (unkno wn) date) unknown) (unknown) (no (unknown) (unknown) Skin (units (unkno wn) date) unknown) (unknown) (no (unknown) (unknown) Skin/Breast: (units (u nknown) date) Reports system unknown) reviewed and no additional complaints, except as (unknown) (no (unknown) (unknown) Smoking Status: (units (unknown) date) Former smoker unknown) (unknown) (no (unknown) (unknown) Social History (units (unknown) date) (Reviewed 05/13/22 unknown) @ 16:46 by Aníbal Lopez DO) (unknown) (no (unknown) (unknown) Soft tissues:? No (units (unknown) date) joint effusion.? unknown) No suspicious soft tissue calcifications.? (unknown) (no (unknown) (unknown) Source: patient (units (unknown) date) unknown) (unknown) (no (unknown) (unknown) Stated complaint: (units (unknown) date) Hip fracture unknown) surgery in november, Worsening pain (unknown) (no (unknown) (unknown) Substance Use (units ( unknown) date) Type: marijuana unknown) (unknown) (no (unknown) (unknown) Surgical History (units (unknown) date) (Updated 11/30/21 unknown) @ 21:43 by Wilian Zambrano MD) (unknown) (no (unknown) (unknown) TECHNIQUE:? 3 (units ( unknown) date) views of the knee unknown) were acquired.? (unknown) (no (unknown) (unknown) Temperature 98.6 (units (unknown) date) F 05/13/22 15:55 unknown) (unknown) (no (unknown) (unknown) Temperature 98.6 (units (unknown) date) F unknown) (unknown) (no (unknown) (unknown) Time Seen by (units (u nknown) date) Provider: 05/13/22 unknown) 16:14 (unknown) (no (unknown) (unknown) Vital Signs - 8 (units (unknown) date) hr unknown) (unknown) (no (unknown) (unknown) Vital Signs (units (un known) date) unknown) (unknown) (no (unknown) (unknown) Vital signs: (units (u nknown) date) unknown) (unknown) (no (unknown) (unknown) XR knee RT 3V (units ( unknown) date) Stat unknown) (unknown) (no (unknown) (unknown) XRay Report (units (un known) date) unknown) (unknown) (no (unknown) (unknown) afterwards she (units (unknown) date) was doing well. unknown) She was walking until 1 month ago when she (unknown) (no (unknown) (unknown) alcohol intake (units (unknown) date) frequency: 0-2 unknown) drinks per day (unknown) (no (unknown) (unknown) along the ITB (units ( unknown) date) band. Causes unknown) discomfort deep inside with flexion of the hip and (unknown) (no (unknown) (unknown) clinical (units (unkno wn) date) unknown) (unknown) (no (unknown) (unknown) discomfort. She (units (unknown) date) contacted her unknown) orthopedic doctor's office who told her to come (unknown) (no (unknown) (unknown) documented (units (unk nown) date) unknown) (unknown) (no (unknown) (unknown) flexion extension (units (unknown) date) of the knee. unknown) (unknown) (no (unknown) (unknown) imaging (units (unkno wn) date) unknown) (unknown) (no (unknown) (unknown) orthopedic doctor (units (unknown) date) 2 days ago. Had an unknown) injection. There was some question is (unknown) (no (unknown) (unknown) performed. She (units (unknown) date) stated that the unknown) x-rays were unremarkable. She continued to have (unknown) (no (unknown) (unknown) reports no new (units (unknown) date) injuries. States unknown) that it is worse when she stands on it and also (unknown) (no (unknown) (unknown) right hip (units (unkn own) date) fracture. Had pins unknown) placed in November this year. She states that (unknown) (no (unknown) (unknown) started to have (units (unknown) date) pain in her right unknown) hip and then pain in her right knee. She (unknown) (no (unknown) (unknown) such as CT or MRI (units (unknown) date) is suggested for unknown) further evaluation. (unknown) (no (unknown) (unknown) suspicion for (units ( unknown) date) pathology is high, unknown) a repeat examination in 7-10 days, or advanced (unknown) (no (unknown) (unknown) to the emergency (units (unknown) date) department. unknown) (unknown) (no (unknown) (unknown) tobacco type: (units ( unknown) date) cigarettes unknown) (unknown) (no (unknown) (unknown) when she is (units (un known) date) sitting and unknown) standing from sitting. She went to go see her (unknown) (no (unknown) (unknown) whether not it (units (unknown) date) was the hardware unknown) causing the discomfort. She had x-rays Result panel 5 (unknown) (no (unknown) (unknown) (no value) (units (unk nown) date) unknown) (unknown) (no (unknown) (unknown) <Electronically (units (unknown) date) signed by Aníbal nash) Courtney Lopez> (unknown) (no (unknown) (unknown) [id number] (units (unkno wn) date) unknown) (unknown) (no (unknown) (unknown) 05/13/22 16:26 (units (unknown) date) unknown) (unknown) (no (unknown) (unknown) 05/13/22 1746 (units ( unknown) date) unknown) (unknown) (no (unknown) (unknown) 05/13/22 (units (unkno wn) date) unknown) (unknown) (no (unknown) (unknown) 1 tab PO Q8H PRN (units (unknown) date) (Reason: pain) unknown) Qty: 10 0RF (unknown) (no (unknown) (unknown) [address] [place] [address] (units (unknown) date) unknown) (unknown) (no (unknown) (unknown) 15:55 05/13/22 (units (unknown) date) unknown) (unknown) (no (unknown) (unknown) 16:49 (units (unkno wn) date) unknown) (unknown) (no (unknown) (unknown) ? (units (unkno wn) date) unknown) (unknown) (no (unknown) (unknown) Accession Number: (units (unknown) date) [id number] ?? unknown) (unknown) (no (unknown) (unknown) Acct:[id number] (units (unknown) date) unknown) (unknown) (no (unknown) (unknown) Activity (units (unkno wn) date) Restrictions/Addit unknown) ional Instructions: (unknown) (no (unknown) (unknown) Age/Sex: 51 / F (units (unknown) date) unknown) (unknown) (no (unknown) (unknown) [place], [place] (units ( unknown) date) [id number] unknown) (unknown) (no (unknown) (unknown) Approved by: (units (u nknown) date) Jayla Lee M.D. on unknown) 05/13/2022 at 17:22 (unknown) (no (unknown) (unknown) Blood Pressure (units (unknown) date) 137/77 05/13/22 unknown) 15:55 (unknown) (no (unknown) (unknown) Blood Pressure (units (unknown) date) 13777 130/70 unknown) (unknown) (no (unknown) (unknown) Bones:? No (units (unk nown) date) fractures or unknown) dislocations.? No suspicious bony lesions.? (unknown) (no (unknown) (unknown) COMPARISON:? (units (u nknown) date) None. unknown) (unknown) (no (unknown) (unknown) Cardio (units (unkno wn) date) unknown) (unknown) (no (unknown) (unknown) Chief complaint: (units (unknown) date) Extremity unknown) Problem,Nontraumat ic (unknown) (no (unknown) (unknown) Clinical (units (unkno wn) date) Impression: unknown) (unknown) (no (unknown) (unknown) Const (units (unkno wn) date) unknown) (unknown) (no (unknown) (unknown) Constitutional (units (unknown) date) unknown) (unknown) (no (unknown) (unknown) Constitutional: (units (unknown) date) Denies fever(s) unknown) (unknown) (no (unknown) (unknown) Course (units (unkno wn) date) unknown) (unknown) (no (unknown) (unknown) : 1970 (units (unknown) date) Acct:[id number] unknown) (unknown) (no (unknown) (unknown) : 1970 (units (unknown) date) unknown) (unknown) (no (unknown) (unknown) Date of Service: (units (unknown) date) 05/13/22 unknown) (unknown) (no (unknown) (unknown) Departure (units (unkn own) date) unknown) (unknown) (no (unknown) (unknown) Dictated by: (units (u nknown) date) Jayla Lee M.D. on unknown) 05/13/2022 at 17:20 ? ? (unknown) (no (unknown) (unknown) Discharge Plan (units (unknown) date) unknown) (unknown) (no (unknown) (unknown) Discontinued (units (u nknown) date) Medications unknown) (unknown) (no (unknown) (unknown) ED Orders (units (unkn own) date) unknown) (unknown) (no (unknown) (unknown) ER Physician: (units ( unknown) date) Aníbal Lopez unknown) D.O. (unknown) (no (unknown) (unknown) Effort + (units (unkno wn) date) Inspection: normal unknown) respiratory effort (unknown) (no (unknown) (unknown) Emergency Report (units (unknown) date) unknown) (unknown) (no (unknown) (unknown) Exam (units (unkno wn) date) unknown) (unknown) (no (unknown) (unknown) Extrem (units (unkno wn) date) unknown) (unknown) (no (unknown) (unknown) Extremity x-ray (units (unknown) date) #1: unknown) (unknown) (no (unknown) (unknown) FINDINGS:? (units (unk nown) date) unknown) (unknown) (no (unknown) (unknown) Saleem Suazo (units (unk nown) date) MD Joel unknown) [Primary Care Provider] (unknown) (no (unknown) (unknown) General (units (unkno wn) date) unknown) (unknown) (no (unknown) (unknown) General: (units (unkno wn) date) cooperative and unknown) healthy appearing (unknown) (no (unknown) (unknown) HENMT (units (unkno wn) date) unknown) (unknown) (no (unknown) (unknown) HPI - Extremity (units (unknown) date) Problem unknown) (unknown) (no (unknown) (unknown) HPI Narrative: (units (unknown) date) unknown) (unknown) (no (unknown) (unknown) Head: normal to (units (unknown) date) inspection unknown) (unknown) (no (unknown) (unknown) Healed surgical (units (unknown) date) scar as lateral unknown) upper thigh. No signs of infection. (unknown) (no (unknown) (unknown) Hematologic/Lymph (units (unknown) date) atic unknown) (unknown) (no (unknown) (unknown) History of (units (unk nown) date) Present Illness unknown) (unknown) (no (unknown) (unknown) Hydromorphone HCl (units (unknown) date) (Hydromorphone 0.5 unknown) Mg Inj) 0.5 mg IV NOW ONE (unknown) (no (unknown) (unknown) I recommend that (units (unknown) date) you keep your unknown) follow-up appointment with the orthopedic surgeon (unknown) (no (unknown) (unknown) IMPRESSION:? No (units (unknown) date) acute osseous unknown) abnormalities.? If clinical symptoms persist or (unknown) (no (unknown) (unknown) INDICATIONS:? (units ( unknown) date) knee pain unknown) (unknown) (no (unknown) (unknown) Imaging Data (units (u nknown) date) unknown) (unknown) (no (unknown) (unknown) Initial Vital (units ( unknown) date) Signs unknown) (unknown) (no (unknown) (unknown) Initial Vital (units ( unknown) date) Signs: unknown) (unknown) (no (unknown) (unknown) Integumentary/Fabby (units (unknown) date) asts unknown) (unknown) (no (unknown) (unknown) [facility] (units (unknown) date) [address] unknown) [place] [address] (unknown) (no (unknown) (unknown) [facility] (units (unknown) date) unknown) (unknown) (no (unknown) (unknown) Leg pain, right (units (unknown) date) unknown) (unknown) (no (unknown) (unknown) Loc: ED (units (unkno wn) date) unknown) (unknown) (no (unknown) (unknown) MDM - Extremity (units (unknown) date) (Nontraumatic) unknown) (unknown) (no (unknown) (unknown) MR#: [id number] (units (unknown) date) unknown) (unknown) (no (unknown) (unknown) Medical History (units (unknown) date) (Reviewed 05/13/22 unknown) @ 16:46 by Aníbal Lopez DO) (unknown) (no (unknown) (unknown) Medication (units (unk nown) date) Instructions unknown) Recorded (unknown) (no (unknown) (unknown) Mode of arrival: (units (unknown) date) Family Vehicle unknown) (unknown) (no (unknown) (unknown) Musculoskeletal (units (unknown) date) unknown) (unknown) (no (unknown) (unknown) Musculoskeletal: (units (unknown) date) Reports system unknown) reviewed and no additional complaints, except as (unknown) (no (unknown) (unknown) Neuro (units (unkno wn) date) unknown) (unknown) (no (unknown) (unknown) Neurologic (units (unk nown) date) unknown) (unknown) (no (unknown) (unknown) Neurologic: (units (un known) date) Reports system unknown) reviewed and no additional complaints, except as (unknown) (no (unknown) (unknown) New (units (unkno wn) date) unknown) (unknown) (no (unknown) (unknown) No significant (units (unknown) date) past medical unknown) history (unknown) (no (unknown) (unknown) No significant (units (unknown) date) past surgical unknown) history (unknown) (no (unknown) (unknown) On (units (unkno wn) date) Anticoagulants: No unknown) (unknown) (no (unknown) (unknown) Ordered: (units (unkno wn) date) unknown) (unknown) (no (unknown) (unknown) Ordering (units (unkno wn) date) Provider: unknown) Aníbal Lopez D.O. (unknown) (no (unknown) (unknown) Orders (units (unkno wn) date) unknown) (unknown) (no (unknown) (unknown) Other: (units (unkno wn) date) unknown) (unknown) (no (unknown) (unknown) Oxygen Delivery (units (unknown) date) Method 05/13/22 unknown) 15:55 (unknown) (no (unknown) (unknown) Oxygen Delivery (units (unknown) date) Method Room Air unknown) (unknown) (no (unknown) (unknown) PROCEDURE:? XR (units (unknown) date) KNEE RT 3V unknown) (unknown) (no (unknown) (unknown) Patient (units (unkno wn) date) Disposition: Home unknown) (unknown) (no (unknown) (unknown) Patient History (units (unknown) date) unknown) (unknown) (no (unknown) (unknown) Patient does have (units (unknown) date) some tenderness unknown) along the lateral hamstring. Mild tenderness (unknown) (no (unknown) (unknown) Patient is a (units (u nknown) date) 51-year-old unknown) female. Earlier this year she was diagnosed with a (unknown) (no (unknown) (unknown) Patient: (units (unkno wn) date) HEIKE ANGELES unknown) MR#: [id number] (unknown) (no (unknown) (unknown) Patient: (units (o wn) date) HEIKE ANGELES unknown) (unknown) (no (unknown) (unknown) Prescriptions: (units (unknown) date) unknown) (unknown) (no (unknown) (unknown) Previous Rx's (units ( unknown) date) unknown) (unknown) (no (unknown) (unknown) Procedure: XR (units ( unknown) date) knee RT 3V unknown) (unknown) (no (unknown) (unknown) Pulse Oximetry 95 (units (unknown) date) 05/13/22 15:55 unknown) (unknown) (no (unknown) (unknown) Pulse Oximetry 95 (units (unknown) date) 98 unknown) (unknown) (no (unknown) (unknown) Pulse Rate 50 L (units (unknown) date) 05/13/22 15:55 unknown) (unknown) (no (unknown) (unknown) Pulse Rate 50 L (units (unknown) date) 52 L unknown) (unknown) (no (unknown) (unknown) Radiologist's (units ( unknown) date) Impression: unknown) (unknown) (no (unknown) (unknown) Rate: regular (units ( unknown) date) rate unknown) (unknown) (no (unknown) (unknown) Referrals: (units (unk nown) date) unknown) (unknown) (no (unknown) (unknown) Related Data (units (u nknown) date) unknown) (unknown) (no (unknown) (unknown) Resp (units (unkno wn) date) unknown) (unknown) (no (unknown) (unknown) Respiratory Rate (units (unknown) date) 19 05/13/22 15:55 unknown) (unknown) (no (unknown) (unknown) Respiratory Rate (units (unknown) date) 19 18 unknown) (unknown) (no (unknown) (unknown) Review of Systems (units (unknown) date) unknown) (unknown) (no (unknown) (unknown) Sensory Exam: no (units (unknown) date) sensory deficits unknown) noted (unknown) (no (unknown) (unknown) Signed By: (units (unk nown) date) unknown) (unknown) (no (unknown) (unknown) Signed (units (unkno wn) date) unknown) (unknown) (no (unknown) (unknown) Skin (units (unkno wn) date) unknown) (unknown) (no (unknown) (unknown) Skin/Breast: (units (u nknown) date) Reports system unknown) reviewed and no additional complaints, except as (unknown) (no (unknown) (unknown) Smoking Status: (units (unknown) date) Former smoker unknown) (unknown) (no (unknown) (unknown) Social History (units (unknown) date) (Reviewed 05/13/22 unknown) @ 16:46 by Aníbal Lopez DO) (unknown) (no (unknown) (unknown) Soft tissues:? No (units (unknown) date) joint effusion.? unknown) No suspicious soft tissue calcifications.? (unknown) (no (unknown) (unknown) Source: patient (units (unknown) date) unknown) (unknown) (no (unknown) (unknown) Stated complaint: (units (unknown) date) Hip fracture unknown) surgery in november, Worsening pain (unknown) (no (unknown) (unknown) Stop: 05/13/22 (units (unknown) date) 17:43 unknown) (unknown) (no (unknown) (unknown) Substance Use (units ( unknown) date) Type: marijuana unknown) (unknown) (no (unknown) (unknown) Surgical History (units (unknown) date) (Updated 04/05/22 unknown) @ 21:43 by Wilian Zambrano MD) (unknown) (no (unknown) (unknown) TECHNIQUE:? 3 (units ( unknown) date) views of the knee unknown) were acquired.? (unknown) (no (unknown) (unknown) Temperature 98.6 (units (unknown) date) F 05/13/22 15:55 unknown) (unknown) (no (unknown) (unknown) Temperature 98.6 (units (unknown) date) F unknown) (unknown) (no (unknown) (unknown) Time Seen by (units (u nknown) date) Provider: 05/13/22 unknown) 16:14 (unknown) (no (unknown) (unknown) Vital Signs - 8 (units (unknown) date) hr unknown) (unknown) (no (unknown) (unknown) Vital Signs (units (un known) date) unknown) (unknown) (no (unknown) (unknown) Vital signs: (units (u nknown) date) unknown) (unknown) (no (unknown) (unknown) XR knee RT 3V (units ( unknown) date) Stat unknown) (unknown) (no (unknown) (unknown) XRay Report (units (un known) date) unknown) (unknown) (no (unknown) (unknown) afterwards she (units (unknown) date) was doing well. unknown) She was walking until 1 month ago when she (unknown) (no (unknown) (unknown) alcohol intake (units (unknown) date) frequency: 0-2 unknown) drinks per day (unknown) (no (unknown) (unknown) along the ITB (units ( unknown) date) band. Causes unknown) discomfort deep inside with flexion of the hip and (unknown) (no (unknown) (unknown) clinical (units (unkno wn) date) unknown) (unknown) (no (unknown) (unknown) discomfort. She (units (unknown) date) contacted her unknown) orthopedic doctor's office who told her to come (unknown) (no (unknown) (unknown) documented (units (unk nown) date) unknown) (unknown) (no (unknown) (unknown) emergency (units (unkn own) date) department for any unknown) new or worsening symptoms. (unknown) (no (unknown) (unknown) flexion extension (units (unknown) date) of the knee. unknown) (unknown) (no (unknown) (unknown) hydrocodone 5 (units ( unknown) date) mg-acetaminophen unknown) 325 1 tab PO Q8H PRN pain #10 tabs 05/13/22 (unknown) (no (unknown) (unknown) hydrocodone-aceta (units (unknown) date) minophen 5-325 mg unknown) tablet (unknown) (no (unknown) (unknown) imaging (units (unkno wn) date) unknown) (unknown) (no (unknown) (unknown) mg tablet (units (unkn own) date) unknown) (unknown) (no (unknown) (unknown) on Monday. The (units (unknown) date) x-rays today shows unknown) no new signs of any fractures. Also low (unknown) (no (unknown) (unknown) orthopedic doctor (units (unknown) date) 2 days ago. Had an unknown) injection. There was some question is (unknown) (no (unknown) (unknown) performed. She (units (unknown) date) stated that the unknown) x-rays were unremarkable. She continued to have (unknown) (no (unknown) (unknown) reports no new (units (unknown) date) injuries. States unknown) that it is worse when she stands on it and also (unknown) (no (unknown) (unknown) right hip (units (unkn own) date) fracture. Had pins unknown) placed in November this year. She states that (unknown) (no (unknown) (unknown) started to have (units (unknown) date) pain in her right unknown) hip and then pain in her right knee. She (unknown) (no (unknown) (unknown) such as CT or MRI (units (unknown) date) is suggested for unknown) further evaluation. (unknown) (no (unknown) (unknown) suspicion for any (units (unknown) date) infections. Take unknown) the medication as directed. Return to the (unknown) (no (unknown) (unknown) suspicion for (units ( unknown) date) pathology is high, unknown) a repeat examination in 7-10 days, or advanced (unknown) (no (unknown) (unknown) to the emergency (units (unknown) date) department. unknown) (unknown) (no (unknown) (unknown) tobacco type: (units ( unknown) date) cigarettes unknown) (unknown) (no (unknown) (unknown) when she is (units (un known) date) sitting and unknown) standing from sitting. She went to go see her (unknown) (no (unknown) (unknown) whether not it (units (unknown) date) was the hardware unknown) causing the discomfort. She had x-rays Result panel 6 (unknown) (no (unknown) (unknown) (no value) (units (unk nown) date) unknown) (unknown) (no (unknown) (unknown) [id number] (units (unkno wn) date) unknown) (unknown) (no (unknown) (unknown) 05/21/22 (units (unkno wn) date) unknown) (unknown) (no (unknown) (unknown) [address]units (unkn own) date) [address] unknown) (unknown) (no (unknown) (unknown) Accession (units (unkn own) date) Number: unknown) [id number] (unknown) (no (unknown) (unknown) Age-appropriate (units (unknown) date) lower lumbar unknown) spine degenerative changes are noted. (unknown) (no (unknown) (unknown) Age/Sex: 51 / F (units (unknown) date) Date of Service: unknown) (unknown) (no (unknown) (unknown) [place] (units ( unknown) date) [id number] unknown) (unknown) (no (unknown) (unknown) Approved by: (units (u nknown) date) Raul Marshall unknown) Trudy Harley on 05/21/2022 at 14:51 (unknown) (no (unknown) (unknown) Bones: No (units (unkn own) date) fractures or unknown) dislocations. Prior right hip pinning can be seen. (unknown) (no (unknown) (unknown) COMPARISON: (units (un known) date) [facility], unknown) MR, MR HIP RT WO CON, 11/30/2021, 18:03. (unknown) (no (unknown) (unknown) : 1970 (units (unknown) date) Acct:[id number] unknown) (unknown) (no (unknown) (unknown) Dictated by: (units (u nknown) date) Raul Marshall unknownSelena Harley M.D. on 05/21/2022 at 14:50 (unknown) (no (unknown) (unknown) FINDINGS: (units (unkn own) date) unknown) (unknown) (no (unknown) (unknown) IMPRESSION: No (units (unknown) date) acute fracture unknown) can be seen on these plain films. (unknown) (no (unknown) (unknown) INDICATIONS: (units (u nknown) date) fall/pain unknown) (unknown) (no (unknown) (unknown) If there is (units (un known) date) point tenderness unknown) (or other clinical suspicion for a fracture not (unknown) (no (unknown) (unknown) [facility] (units (unknown) date) unknown) (unknown) (no (unknown) (unknown) Loc: ED (units (unkno wn) date) unknown) (unknown) (no (unknown) (unknown) Ordering (units (unkno wn) date) Provider: unknown) Joana Schultz MD (unknown) (no (unknown) (unknown) PROCEDURE: XR (units ( unknown) date) HIP W PEL IF unknown) DONE RT 2V (unknown) (no (unknown) (unknown) Patient: (units (unkno wn) date) HEIKE ANGELES unknown) MR#: [id number] (unknown) (no (unknown) (unknown) Pelvic ring (units (un known) date) unknown) (unknown) (no (unknown) (unknown) Prior right (units (un known) date) femoral neck unknown) pinning. (unknown) (no (unknown) (unknown) Procedure: XR (units ( unknown) date) hip w pel if unknown) done RT 2V (unknown) (no (unknown) (unknown) Signed (units (unkno wn) date) unknown) (unknown) (no (unknown) (unknown) Soft tissues: (units ( unknown) date) The visualized unknown) bowel gas pattern is normal. No suspicious soft (unknown) (no (unknown) (unknown) TECHNIQUE: AP (units ( unknown) date) pelvis with unknown) lateral view(s) of the right hip(s). (unknown) (no (unknown) (unknown) XRay Report (units (un known) date) unknown) (unknown) (no (unknown) (unknown) appears intact. (units (unknown) date) No suspicious unknown) bony lesions. (unknown) (no (unknown) (unknown) calcifications. (units (unknown) date) Pelvic unknown) phleboliths are incidentally noted. (unknown) (no (unknown) (unknown) clinically (units (unk nown) date) appropriate. unknown) (unknown) (no (unknown) (unknown) if (units (unkno wn) date) unknown) (unknown) (no (unknown) (unknown) seen on (units (unkno wn) date) unknown) (unknown) (no (unknown) (unknown) these images) (units ( unknown) date) then a dedicated unknown) CT could be considered for further evaluation, (unknown) (no (unknown) (unknown) tissue (units (unkno wn) date) unknown) Result panel 7 (unknown) (no (unknown) (unknown) (no value) (units (unk nown) date) unknown) (unknown) (no (unknown) (unknown) [id number] (units (unkno wn) date) unknown) (unknown) (no (unknown) (unknown) 05/21/22 (units (unkno wn) date) unknown) (unknown) (no (unknown) (unknown) [address] [place] [address] (units (unknown) date) unknown) (unknown) (no (unknown) (unknown) Accession Number: (units (unknown) date) [id number] unknown) (unknown) (no (unknown) (unknown) Age/Sex: 51 / F (units (unknown) date) Date of Service: unknown) (unknown) (no (unknown) (unknown) [place], [place] (units ( unknown) date) [id number] unknown) (unknown) (no (unknown) (unknown) Approved by: (units (u nknown) date) Raul Harley, unknown) EdgarDKriss on 05/21/2022 at 15:32 (unknown) (no (unknown) (unknown) Bones: 5 (units (unkno wn) date) [id number] unknown) vertebrae are present. There is minimal to mild (unknown) (no (unknown) (unknown) COMPARISON: (units (un known) date) [facility], unknown) CR, XR HIP W PEL IF DONE RT 2V, 05/21/2022, 15:01. (unknown) (no (unknown) (unknown) : 1970 (units (unknown) date) Acct:[id number] unknown) (unknown) (no (unknown) (unknown) Dictated by: (units (u nknown) date) Raul Harley, unknownSelena Yates on 05/21/2022 at 15:31 (unknown) (no (unknown) (unknown) FINDINGS: (units (unkn own) date) unknown) (unknown) (no (unknown) (unknown) Focal L3-L4 (units (un known) date) degenerative unknown) change. (unknown) (no (unknown) (unknown) IMPRESSION: No (units (unknown) date) acute fracture can unknown) be seen on these plain films. (unknown) (no (unknown) (unknown) INDICATIONS: (units (u nknown) date) fall, lumbar pain unknown) (unknown) (no (unknown) (unknown) [facility] (units (unknown) date) unknown) (unknown) (no (unknown) (unknown) Loc: ED (units (unkno wn) date) unknown) (unknown) (no (unknown) (unknown) Ordering (units (unkno wn) date) Provider: unknown) Joana Schultz MD (unknown) (no (unknown) (unknown) PROCEDURE: XR (units ( unknown) date) LUMBAR SPINE 2-3V unknown) (unknown) (no (unknown) (unknown) Patient: (units (unkno wn) date) HEIKE ANGELES unknown) MR#: [id number] (unknown) (no (unknown) (unknown) Prior (units (unkno wn) date) postoperative unknown) changes, with removal of portions of the posterior (unknown) (no (unknown) (unknown) Procedure: XR (units ( unknown) date) lumbar spine 2-3V unknown) (unknown) (no (unknown) (unknown) Signed (units (unkno wn) date) unknown) (unknown) (no (unknown) (unknown) Soft tissues: (units ( unknown) date) Overlying bowel unknown) gas pattern is normal. No suspicious soft (unknown) (no (unknown) (unknown) TECHNIQUE: 3 (units (u nknown) date) views of the unknown) lumbar spine were acquired. (unknown) (no (unknown) (unknown) There is been (units ( unknown) date) removal of unknown) portions of the posterior elements within the superior (unknown) (no (unknown) (unknown) There is moderate (units (unknown) date) disc space unknown) narrowing at L3-L4, with associated endplate (unknown) (no (unknown) (unknown) XRay Report (units (un known) date) unknown) (unknown) (no (unknown) (unknown) and sclerosis. (units (unknown) date) unknown) (unknown) (no (unknown) (unknown) body (units (unkno wn) date) unknown) (unknown) (no (unknown) (unknown) calcifications. (units (unknown) date) Cholecystectomy unknown) clips are seen. Pelvic phleboliths are (unknown) (no (unknown) (unknown) compression (units (un known) date) fractures. No unknown) suspicious bony lesions. (unknown) (no (unknown) (unknown) elements. (units (unkn own) date) unknown) (unknown) (no (unknown) (unknown) incidentally (units (u nknown) date) unknown) (unknown) (no (unknown) (unknown) irregularity (units (u nknown) date) unknown) (unknown) (no (unknown) (unknown) levoconvex (units (unk nown) date) unknown) (unknown) (no (unknown) (unknown) lumbar spine. (units ( unknown) date) unknown) (unknown) (no (unknown) (unknown) noted. (units (unkno wn) date) unknown) (unknown) (no (unknown) (unknown) scoliotic (units (unkn own) date) curvature. Minimal unknown) retrolisthesis is seen at L3-L4. No vertebral (unknown) (no (unknown) (unknown) tissue (units (unkno wn) date) unknown) (unknown) (no (unknown) (unknown) to mid (units (unkno wn) date) unknown) Result panel 8 (unknown) (no (unknown) (unknown) (no value) (units (unk nown) date) unknown) (unknown) (no (unknown) (unknown) <Electronically (units (unknown) date) signed by Joana Knight unknown) MD Marion> (unknown) (no (unknown) (unknown) [id number] (units (unkno wn) date) unknown) (unknown) (no (unknown) (unknown) 05/21/22 14:52 (units (unknown) date) unknown) (unknown) (no (unknown) (unknown) 05/21/22 15:46 (units (unknown) date) unknown) (unknown) (no (unknown) (unknown) 05/21/22 1710 (units ( unknown) date) unknown) (unknown) (no (unknown) (unknown) 05/21/22 (units (unkno wn) date) unknown) (unknown) (no (unknown) (unknown) 1 tab PO Q6H PRN (units (unknown) date) (Reason: pain) unknown) Qty: 14 0RF (unknown) (no (unknown) (unknown) 1 tab PO Q8H PRN (units (unknown) date) (Reason: pain) unknown) Qty: 10 0RF (unknown) (no (unknown) (unknown) 14:57 (units (unkno wn) date) unknown) (unknown) (no (unknown) (unknown) 48 hours after a (units (unknown) date) fall is typically unknown) when the pain reaches its peak. Using 400 mg (unknown) (no (unknown) (unknown) 51-year-old woman (units (unknown) date) with history of a unknown) right hip fracture previously was leaning (unknown) (no (unknown) (unknown) 51-year-old woman (units (unknown) date) with mechanical unknown) fall and pain in the right hip and low back (unknown) (no (unknown) (unknown) ? (units (unkno wn) date) unknown) (unknown) (no (unknown) (unknown) Activity (units (unkno wn) date) Restrictions/Addit unknown) ional Instructions: (unknown) (no (unknown) (unknown) Age-appropriate (units (unknown) date) lower lumbar spine unknown) degenerative changes are noted. (unknown) (no (unknown) (unknown) Age/Sex: 51 / F (units (unknown) date) unknown) (unknown) (no (unknown) (unknown) Allergies (units (unkn own) date) unknown) (unknown) (no (unknown) (unknown) Allergy/AdvReac (units (unknown) date) Type Severity unknown) Reaction Status Date / Time (unknown) (no (unknown) (unknown) Blood Pressure (units (unknown) date) 127/61 05/21/22 unknown) 14:57 (unknown) (no (unknown) (unknown) Blood Pressure (units (unknown) date) unknown) (unknown) (no (unknown) (unknown) Bones:? 5 (units (unkn own) date) [id number] unknown) vertebrae are present.? There is minimal to mild (unknown) (no (unknown) (unknown) Bones:? No (units (unk nown) date) fractures or unknown) dislocations.? Prior right hip pinning can be seen.? (unknown) (no (unknown) (unknown) Chief Complaint: (units (unknown) date) Extremity Injury, unknown) Lower (unknown) (no (unknown) (unknown) Clinical (units (unkno wn) date) Impression: unknown) (unknown) (no (unknown) (unknown) Contusion of hip, (units (unknown) date) right unknown) (unknown) (no (unknown) (unknown) Course (units (unkno wn) date) unknown) (unknown) (no (unknown) (unknown) : 1970 (units (unknown) date) Acct:[id number] unknown) (unknown) (no (unknown) (unknown) Date of Service: (units (unknown) date) 05/21/22 unknown) (unknown) (no (unknown) (unknown) Departure (units (unkn own) date) unknown) (unknown) (no (unknown) (unknown) Dictated by: (units (u nknown) date) mila Alvarez M.D. on 05/21/2022 at 14:50 ? ? (unknown) (no (unknown) (unknown) Dictated by: (units (u nknown) date) mila Alvarez M.D. on 05/21/2022 at 15:31 ? ? (unknown) (no (unknown) (unknown) Discharge Plan (units (unknown) date) unknown) (unknown) (no (unknown) (unknown) Discontinued (units (u nknown) date) Medications unknown) (unknown) (no (unknown) (unknown) Documented By: BT (units (unknown) date) unknown) (unknown) (no (unknown) (unknown) ED Orders (units (unkn own) date) unknown) (unknown) (no (unknown) (unknown) ER Physician: (units ( unknown) date) Joana Schultz unknown) (unknown) (no (unknown) (unknown) Emergency Report (units (unknown) date) unknown) (unknown) (no (unknown) (unknown) Encounter type: (units (unknown) date) initial encounter unknown) Qualified Code(s): S70.01XA - Contusion of (unknown) (no (unknown) (unknown) Encounter type: (units (unknown) date) initial encounter unknown) Qualified Code(s): W19.XXXA - Unspecified (unknown) (no (unknown) (unknown) Exam (units (unkno wn) date) unknown) (unknown) (no (unknown) (unknown) Extremities: She (units (unknown) date) is tender over the unknown) greater trochanter without significant (unknown) (no (unknown) (unknown) FINDINGS:? (units (unk nown) date) unknown) (unknown) (no (unknown) (unknown) Fall (units (unkno wn) date) unknown) (unknown) (no (unknown) (unknown) Saleem Suazo (units (unk nown) date) MD Joel unknown) [Primary Care Provider] (unknown) (no (unknown) (unknown) Focal L3-L4 (units (un known) date) degenerative unknown) change. (unknown) (no (unknown) (unknown) General (units (unkno wn) date) unknown) (unknown) (no (unknown) (unknown) General: Alert (units (unknown) date) appropriate in no unknown) acute distress (unknown) (no (unknown) (unknown) HPI - Extremity (units (unknown) date) Injury (Lower) unknown) (unknown) (no (unknown) (unknown) HPI Narrative: (units (unknown) date) unknown) (unknown) (no (unknown) (unknown) History of (units (unk nown) date) Present Illness unknown) (unknown) (no (unknown) (unknown) IMPRESSION:? No (units (unknown) date) acute fracture can unknown) be seen on these plain films. (unknown) (no (unknown) (unknown) If there is point (units (unknown) date) tenderness (or unknown) other clinical suspicion for a fracture not (unknown) (no (unknown) (unknown) If you find that (units (unknown) date) you are getting unknown) worse or develop any new symptoms, please feel (unknown) (no (unknown) (unknown) Imaging Data (units (u nknown) date) unknown) (unknown) (no (unknown) (unknown) Initial Vital (units ( unknown) date) Signs unknown) (unknown) (no (unknown) (unknown) Initial Vital (units ( unknown) date) Signs: unknown) (unknown) (no (unknown) (unknown) Instructions: DI (units (unknown) date) for Contusion unknown) (unknown) (no (unknown) (unknown) [facility] (units (unknown) date) [address] [place] [address] unknown) [place] [address] (unknown) (no (unknown) (unknown) It is appropriate (units (unknown) date) to stay as active unknown) as you can, gentle early mobilization does (unknown) (no (unknown) (unknown) Ketorolac (units (unkn own) date) Tromethamine unknown) (Ketorolac 30 Mg/Ml Vial) 30 mg IM NOW ONE (unknown) (no (unknown) (unknown) Last Admin: (units (un known) date) 05/21/22 16:22 unknown) Dose: 30 mg (unknown) (no (unknown) (unknown) Lumbar spine pain (units (unknown) date) unknown) (unknown) (no (unknown) (unknown) MDM - Extremity (units (unknown) date) Injury (Lower) unknown) (unknown) (no (unknown) (unknown) MDM Narrative (units ( unknown) date) unknown) (unknown) (no (unknown) (unknown) Medical History (units (unknown) date) (Reviewed 05/21/22 unknown) @ 17:03 by Joana Schultz MD) (unknown) (no (unknown) (unknown) Medical decision (units (unknown) date) making narrative: unknown) (unknown) (no (unknown) (unknown) Medication (units (unk nown) date) Instructions unknown) Recorded (unknown) (no (unknown) (unknown) Mode of arrival: (units (unknown) date) Family Vehicle unknown) (unknown) (no (unknown) (unknown) Narrative: (units (unk nown) date) unknown) (unknown) (no (unknown) (unknown) Neurologic: (units (un known) date) Grossly intact no unknown) obvious asymmetries or abnormalities (unknown) (no (unknown) (unknown) New (units (unkno wn) date) unknown) (unknown) (no (unknown) (unknown) No Action (units (unkn own) date) unknown) (unknown) (no (unknown) (unknown) No significant (units (unknown) date) past medical unknown) history (unknown) (no (unknown) (unknown) No significant (units (unknown) date) past surgical unknown) history (unknown) (no (unknown) (unknown) Ordered: (units (unkno wn) date) unknown) (unknown) (no (unknown) (unknown) Orders (units (unkno wn) date) unknown) (unknown) (no (unknown) (unknown) Oxygen Delivery (units (unknown) date) Method 05/21/22 unknown) 14:57 (unknown) (no (unknown) (unknown) Oxygen Delivery (units (unknown) date) Method Room Air unknown) (unknown) (no (unknown) (unknown) Patient (units (unkno wn) date) Disposition: Home unknown) (unknown) (no (unknown) (unknown) Patient History (units (unknown) date) unknown) (unknown) (no (unknown) (unknown) Patient: (units (unkno wn) date) HEIKE ANGELES unknown) MR#: [id number] (unknown) (no (unknown) (unknown) Pelvic ring (units (un known) date) unknown) (unknown) (no (unknown) (unknown) Percocet will be (units (unknown) date) helpful. unknown) (unknown) (no (unknown) (unknown) Prescriptions: (units (unknown) date) unknown) (unknown) (no (unknown) (unknown) Previous Rx's (units ( unknown) date) unknown) (unknown) (no (unknown) (unknown) Prior (units (unkno wn) date) postoperative unknown) changes, with removal of portions of the posterior elements. (unknown) (no (unknown) (unknown) Prior right (units (un known) date) femoral neck unknown) pinning. (unknown) (no (unknown) (unknown) Psych: (units (unkno wn) date) appropriate unknown) insight and affect, cooperative (unknown) (no (unknown) (unknown) Pulse Oximetry 99 (units (unknown) date) 05/21/22 14:57 unknown) (unknown) (no (unknown) (unknown) Pulse Oximetry 99 (units (unknown) date) unknown) (unknown) (no (unknown) (unknown) Pulse Rate 44 L (units (unknown) date) 05/21/22 14:57 unknown) (unknown) (no (unknown) (unknown) Pulse Rate 44 L (units (unknown) date) unknown) (unknown) (no (unknown) (unknown) Qualifiers: (units (un known) date) unknown) (unknown) (no (unknown) (unknown) Radiologist's (units ( unknown) date) Impression: unknown) (unknown) (no (unknown) (unknown) Referrals: (units (unk nown) date) unknown) (unknown) (no (unknown) (unknown) Related Data (units (u nknown) date) unknown) (unknown) (no (unknown) (unknown) Remainder of (units (u nknown) date) complete review of unknown) systems is otherwise unremarkable except for (unknown) (no (unknown) (unknown) Respiratory Rate (units (unknown) date) 18 05/21/22 14:57 unknown) (unknown) (no (unknown) (unknown) Respiratory Rate (units (unknown) date) 18 unknown) (unknown) (no (unknown) (unknown) Respiratory: Able (units (unknown) date) to speak in full unknown) sentences, no obvious respiratory distress (unknown) (no (unknown) (unknown) Review of Systems (units (unknown) date) unknown) (unknown) (no (unknown) (unknown) Signed By: (units (unk nown) date) unknown) (unknown) (no (unknown) (unknown) Skin: No obvious (units (unknown) date) rashes, warm and unknown) dry (unknown) (no (unknown) (unknown) Smoking Status: (units (unknown) date) Former smoker unknown) (unknown) (no (unknown) (unknown) Social History (units (unknown) date) (Reviewed 05/21/22 unknown) @ 17:03 by Joana Schultz MD) (unknown) (no (unknown) (unknown) Soft tissues:? (units ( unknown) date) Overlying bowel unknown) gas pattern is normal.? No suspicious soft tissue (unknown) (no (unknown) (unknown) Soft tissues:? (units (unknown) date) The visualized unknown) bowel gas pattern is normal.? No suspicious soft (unknown) (no (unknown) (unknown) Source: patient (units (unknown) date) unknown) (unknown) (no (unknown) (unknown) Spine: Large (units (u nknown) date) well-healed scar unknown) from multilevel laminectomy. She does have some (unknown) (no (unknown) (unknown) Stated Complaint: (units (unknown) date) intense pain lower unknown) back and hip (unknown) (no (unknown) (unknown) Stop: 05/21/22 (units (unknown) date) 15:47 unknown) (unknown) (no (unknown) (unknown) Substance Use (units ( unknown) date) Type: marijuana unknown) (unknown) (no (unknown) (unknown) Surgical History (units (unknown) date) (Reviewed 05/21/22 unknown) @ 17:03 by Joana Schultz MD) (unknown) (no (unknown) (unknown) Temperature 97.7 (units (unknown) date) F 05/21/22 14:57 unknown) (unknown) (no (unknown) (unknown) Temperature 97.7 (units (unknown) date) F unknown) (unknown) (no (unknown) (unknown) Thank you for (units ( unknown) date) coming in today unknown) (unknown) (no (unknown) (unknown) There is been (units ( unknown) date) removal of unknown) portions of the posterior elements within the superior (unknown) (no (unknown) (unknown) There is moderate (units (unknown) date) disc space unknown) narrowing at L3-L4, with associated endplate (unknown) (no (unknown) (unknown) Time Seen by (units (u nknown) date) Provider: 05/21/22 unknown) 15:40 (unknown) (no (unknown) (unknown) Vital Signs - 8 (units (unknown) date) hr unknown) (unknown) (no (unknown) (unknown) Vital Signs (units (un known) date) unknown) (unknown) (no (unknown) (unknown) Vital signs: (units (u nknown) date) unknown) (unknown) (no (unknown) (unknown) XR hip w pel if (units (unknown) date) done RT 2V Stat unknown) (unknown) (no (unknown) (unknown) XR hip: (units (unkno wn) date) unknown) (unknown) (no (unknown) (unknown) XR lumbar spine (units (unknown) date) 2-3V Stat unknown) (unknown) (no (unknown) (unknown) XR lumbar spine: (units (unknown) date) unknown) (unknown) (no (unknown) (unknown) Your x-rays are (units (unknown) date) reassuring of both unknown) your hip and your lumbar spine. There is no (unknown) (no (unknown) (unknown) acute fractures. (units (unknown) date) Reassurance is unknown) given. Will have her continue with ibuprofen (unknown) (no (unknown) (unknown) alcohol intake (units (unknown) date) frequency: 0-2 unknown) drinks per day (unknown) (no (unknown) (unknown) and Percocet as (units (unknown) date) needed for pain unknown) control with gentle mobilization as soon as she (unknown) (no (unknown) (unknown) and is continuing (units (unknown) date) to have a unknown) significant amount of pain. She is not having any (unknown) (no (unknown) (unknown) and sclerosis. (units (unknown) date) unknown) (unknown) (no (unknown) (unknown) and she is (units (unk nown) date) concerned. X-rays unknown) are reassuring with no hardware abnormalities or (unknown) (no (unknown) (unknown) appears intact.? (units (unknown) date) No suspicious bony unknown) lesions.? (unknown) (no (unknown) (unknown) body (units (unkno wn) date) unknown) (unknown) (no (unknown) (unknown) both of which (units ( unknown) date) have been previous unknown) surgical sites. Pain is worsening at 36 hours (unknown) (no (unknown) (unknown) calcifications.? (units (unknown) date) Cholecystectomy unknown) clips are seen.? Pelvic phleboliths are (unknown) (no (unknown) (unknown) calcifications.? (units (unknown) date) Pelvic phleboliths unknown) are incidentally noted.? (unknown) (no (unknown) (unknown) clinically (units (unk nown) date) appropriate. unknown) (unknown) (no (unknown) (unknown) compression (units (un known) date) fractures.? No unknown) suspicious bony lesions.? (unknown) (no (unknown) (unknown) contusions or (units ( unknown) date) abrasion. She is unknown) neurovascularly intact distally (unknown) (no (unknown) (unknown) coughing, (units (unkn own) date) palpitations. unknown) (unknown) (no (unknown) (unknown) either site. (units (u nknown) date) unknown) (unknown) (no (unknown) (unknown) fall, initial (units ( unknown) date) encounter unknown) (unknown) (no (unknown) (unknown) free to return to (units (unknown) date) the emergency unknown) department for further evaluation. (unknown) (no (unknown) (unknown) having increasing (units (unknown) date) pain in the right unknown) hip as well as paraspinous area on the right (unknown) (no (unknown) (unknown) help with pain (units (unknown) date) after a fall such unknown) as this. (unknown) (no (unknown) (unknown) helpful in (units (unk nown) date) controlling pain. unknown) For severe pain using 400 mg of ibuprofen and 1 (unknown) (no (unknown) (unknown) hours ago. She (units (unknown) date) was able to get up unknown) and has been able to bear weight but is (unknown) (no (unknown) (unknown) hydrocodone 5 (units ( unknown) date) mg-acetaminophen unknown) 325 1 tab PO Q8H PRN pain #10 tabs 05/13/22 (unknown) (no (unknown) (unknown) hydrocodone-aceta (units (unknown) date) minophen 5-325 mg unknown) tablet (unknown) (no (unknown) (unknown) incidentally (units (u nknown) date) unknown) (unknown) (no (unknown) (unknown) irregularity (units (u nknown) date) unknown) (unknown) (no (unknown) (unknown) is able to do so (units (unknown) date) in follow-up with unknown) her primary care doctor as needed. (unknown) (no (unknown) (unknown) levoconvex (units (unk nown) date) unknown) (unknown) (no (unknown) (unknown) lumbar spine. (units ( unknown) date) unknown) (unknown) (no (unknown) (unknown) mg tablet (units (unkn own) date) unknown) (unknown) (no (unknown) (unknown) morphine Allergy (units (unknown) date) Verified 05/21/22 unknown) 14:56 (unknown) (no (unknown) (unknown) new fractures, no (units (unknown) date) compression unknown) fractures and no fractures around the hardware at (unknown) (no (unknown) (unknown) noted.? (units (unkno wn) date) unknown) (unknown) (no (unknown) (unknown) of ibuprofen (2 (units (unknown) date) curq-aub-ymttmtb unknown) pills) and 1 Tylenol every 6 hours can be very (unknown) (no (unknown) (unknown) over in her (units (un known) date) bedroom slipped unknown) and fell landing on her right hip approximately 36 (unknown) (no (unknown) (unknown) oxycodone-acetami (units (unknown) date) nophen 5 mg-325 1 unknown) tab PO Q6H PRN pain #14 tabs 05/21/22 (unknown) (no (unknown) (unknown) oxycodone-acetami (units (unknown) date) nophen 5-325 mg unknown) tablet (unknown) (no (unknown) (unknown) paraspinous spasm (units (unknown) date) close to L3-L4 but unknown) no midline tenderness. (unknown) (no (unknown) (unknown) plastic tape (units (u nknown) date) Allergy Rash unknown) Uncoded 05/21/22 14:56 (unknown) (no (unknown) (unknown) right hip, (units (unk nown) date) initial encounter unknown) (unknown) (no (unknown) (unknown) scoliotic (units (unkn own) date) curvature.? unknown) Minimal retrolisthesis is seen at L3-L4.? No vertebral (unknown) (no (unknown) (unknown) seen on (units (unkno wn) date) unknown) (unknown) (no (unknown) (unknown) side. She is now (units (unknown) date) noting that unknown) perhaps there may be some slight paresthesia over (unknown) (no (unknown) (unknown) that included in (units (unknown) date) the HPI. unknown) (unknown) (no (unknown) (unknown) the anterior (units (u nknown) date) surface of her unknown) thigh. She has been taking Percocet and ibuprofen (unknown) (no (unknown) (unknown) these images) then (units (unknown) date) a dedicated CT unknown) could be considered for further evaluation, if (unknown) (no (unknown) (unknown) tissue (units (unkno wn) date) unknown) (unknown) (no (unknown) (unknown) to mid (units (unkno wn) date) unknown) (unknown) (no (unknown) (unknown) tobacco type: (units ( unknown) date) cigarettes unknown) (unknown) (no (unknown) (unknown) weakness and she (units (unknown) date) describes no unknown) abdominal pain, vomiting, diarrhea, chest pain, Social History No information. Vital Signs No information.
--- NOTE | 2022-05-25 17:41 | ED Physician Documentation ---
History of Present Illness - Stated complaint Stated Complaint: BACK PAIN - Chief complaint Chief Complaint: Back Pain - History obtained from History obtained from: Patient - History of Present Illness Timing: How many days ago (10) Pain level max: 8 Pain level now: 6 - Additonal information Additional information: 51-year-old female presents to the emergency department after a fall approximately 10 days ago. She was seen at [facility] 1 week ago. Negative x-rays of the lumbar spine and right hip. She states she is continuing to have pain at the right SI joint. Worse with movement, walking. Better with rest. She tried Percocet at home without relief. 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 : Kidney stones HEENT: None Psych: Anxiety Musculoskeletal: Osteoarthritis, Other Derm: Other drug resistant infections - Past Surgical History Past Surgical History: Yes General: Cholecystectomy, Appendectomy Ortho: Spine surgery, Arthroscopic surgery - Present Medications Home Medications: Ambulatory Orders Medication Instructions Recorded Confirmed clonazePAM [Clonazepam] 1 mg PO TID PRN 07/14/13 10/23/21 Oxycodone HCl/Acetaminophen 1 each PO Q6H PRN #20 tablet 07/02/20 10/23/21 [Percocet 5-325 mg Tablet] Acetaminophen [Acetaminophen Extra 500 mg PO QID PRN #50 tablet 10/23/21 Strength] Docusate Sodium 100Mg Capsule 100 mg PO DAILY #20 cap 10/23/21 [Colace 100Mg Capsule] Eszopiclone [Lunesta] 3 mg PO HS PRN 10/23/21 10/23/21 Naproxen 250 mg PO TID 7 Days #20 tablet 10/23/21 Progesterone, Micronized 200 mg PO HS 10/23/21 10/23/21 [Prometrium] cloNIDine [Catapres] 0.2 mg PO TID 10/23/21 10/23/21 estradioL [Estradiol] 5 mg PO DAILY 10/23/21 10/23/21 oxyCODONE [Roxicodone] 5 mg PO Q6H PRN #20 tablet 10/23/21 oxyCODONE [Roxicodone] 5 mg PO Q4-6H #20 tablet 12/01/21 HYDROmorphone [Dilaudid] 2 mg PO Q6H PRN #10 tablet 05/25/22 - Allergies Allergies/Adverse Reactions: Allergies Allergy/AdvReac Type Severity Reaction Status Date / Time Iodinated Contrast Media Allergy Severe Respiratory Verified 05/25/22 16:02 iodine Allergy Severe Rash Verified 05/25/22 16:02 morphine Allergy Severe Hives Verified 05/25/22 16:02 adhesive tape Allergy Intermediate Rash Verified 05/25/22 16:02 - Social History Does the pt smoke?: Yes Smoking Status: Current every day smoker Does the pt drink ETOH?: Yes Does the pt have substance abuse?: Yes - Immunizations Immunizations are current?: Yes - POLST Patient has POLST: No PD ED PE NORMAL - Vitals Vital signs reviewed: Yes - General General: Alert and oriented X 3, No acute distress - HEENT HEENT: Moist mucous membranes - Neck Neck: Supple, no meningeal sign - Cardiac Cardiac: RRR - Respiratory Respiratory: No respiratory distress, Clear bilaterally - Back Back: No spinal TTP, Other (No midline tenderness palpation or percussion. No step-off or deformity. Tender to palpation over the right SI joint. Normal examination of the right hip and right knee. Neurovascular intact) - Derm Derm: Warm and dry - Neuro Neuro: Alert and oriented X 3 - Psych Psych: Normal mood, Normal affect Results - Vitals Vitals: Vital Signs - 24 hr 05/25/22 05/25/22 15:57 20:06 Temperature 36.1 C L Heart Rate 66 54 L Respiratory 18 16 Rate Blood Pressure 147/91 H 128/78 O2 Saturation 100 98 Oxygen O2 Source Room air - Rads (name of study) CT pelvis without Radiology: Final report received, EMP read contemporaneously, See rad report (No acute abnormality) PD MEDICAL DECISION MAKING - ED course Complexity details: reviewed results, considered differential, d/w patient ED course: 51-year-old female with a right SI joint pain after a fall approximately 10 days ago. She has been walking with a cane but using it in the right hand. We will have her transfer this to the left hand and see if this helps her pain. Neurovascularly intact. No evidence of occult fracture on CT scan. Pain well controlled. We will place her on pain medication and have her follow-up with her doctor for further care. No evidence of cauda equina, epidural abscess. Patient counseled regarding signs and symptoms for which I believe and urgent re-evaluation would be necessary. Patient with good understanding of and agreement to plan and is comfortable going home at this time This document was made in part using voice recognition software. While efforts are made to proofread this document, sound alike and grammatical errors may occur. Departure - Departure Disposition: Home, Self Care Clinical Impression: Back pain Qualifiers: Back pain location: low back pain Chronicity: acute Back pain laterality: right Sciatica presence: without sciatica Qualified Code(s): M54.50 - Low back pain, unspecified Condition: Good Instructions: ED Cane Selection And Use, ED Neck Back Pain General Follow-Up: Saleem Suazo MD [Primary Care Provider] - Within 1 week Prescriptions: HYDROmorphone [Dilaudid] 2 mg PO Q6H PRN #10 tablet PRN Reason: back pain Comments: Your CT scan does not show any acute abnormalities. Please follow-up with your doctor for further care. Your prescriptions were sent to [facility] in [place]. I am prescribing a short course of narcotic pain medication for you. These are potentially dangerous and addictive medications that should be used carefully. These medications may constipate you. Take an nmet-efx-knmrpak stool softener (docusate) twice daily with plenty of water while taking these medications. If you go 24 hours without a bowel movement, take gwmf-emb-ekkzjou miralax, per package instructions. Do not drink or drive while taking these medications. If you received narcotic or sedating medications while in the emergency department, do not drive for 24 hours. Store this medication in a safe, secure place and out of reach of children. It is a violation of federal law to give or sell this medication to another person or to use in a manner other than prescribed. The ED will not refill narcotic prescriptions, including prescriptions lost or stolen. To dispose of unwanted medications: 1. [facility] [address] in [place] has a medication drop box. They accept prescription medications (in pill form) Monday through Monday 9:00 a.m. to 5:00 p.m. 2. The [facility] [employer] accepts prescription medications (in pill form only) for disposal year round. Call for more inform ation. 3. Contact the [facility] for the next [facility] sponsored prescription drug collection event. , [phone], or [phone]; Discharge Date/Time: 05/25/22 20:07
[2022-05-25] MEDS ORDERED: HYDROmorphone 1 MG/ML CARPUJECT IM STA (18:26)
--- NOTE | 2022-05-25 19:35 | CT Report ---
PROCEDURE: PELVIS WO INDICATIONS: fall, R SI joint pain x 1 week. neg xrays [place] TECHNIQUE: Noncontrast 3 mm axial sections acquired through the bony pelvis, with coronal and sagittal reformatt ing. For radiation dose reduction, the following was used: automated exposure control, adjustment of mA and/or kV according to patient size. COMPARISON: None. FINDINGS: Image quality: Excellent. Bones: The pelvis is intact with no fracture. Status post ORIF of the right femoral neck. The visual ized lumbar spine is normal with no fracture. The sacroiliac joints and sacrum are normal. Soft tissues: Soft tissues in the pelvis and visualized bowel is a pelvis is normal. No pelvic hemat celi. IMPRESSION: No acute traumatic abnormality of the pelvis or sacrum. Reviewed by: Arnulfo Calixto on 05/25/2022 7:34 PM PDT Approved by: Arnulfo Calixto on 05/25/2022 7:34 PM PDT Station ID: [id number]
[2022-05-25] MEDS ORDERED: HYDROmorphone 2 MG TABLET PO STA (19:55)
[2022-05-25 20:07] VITALS: BP 128/78
== END 2022-05-25 20:07 | disposition home or self-care (01) ==
LOC: ED 15:47
DX: M53.3 Sacrococcygeal disorders, not elsewhere classified (principal); M54.50 Low back pain, unspecified; F17.200 Nicotine dependence, unspecified, uncomplicated
CPT/HCPCS: 72192; 96372; 99282; 99284; A9270; J1170

== ENCOUNTER 2022-09-12 14:09 | Emergency (ER) | payer OTHER ==
--- OUTSIDE RECORDS SUMMARY | 2022-09-12 14:16 | EXTERNAL MEDICAL SUMMARY RPT | Continuity of Care Document ---
:1970 Author Organization [facility] Address [address] [place] [address] Phone Allergies No information. Encounters No information. Functional Status No information. Immunizations No information. Medications No information. Problems date description facility 2022-09-01 13:20 Fracture of unspecified part of neck of [facility] femur, subsequ Procedures No information. Results/Labs test date author facility value unit interpret ation Result panel 1 (unknown) (no (unknown) (unknown) (no value) (units (unk nown) date) unknown) (unknown) (no (unknown) (unknown) [id number] (units (unkno wn) date) unknown) (unknown) (no (unknown) (unknown) 09/01/22 (units (unkno wn) date) unknown) (unknown) (no (unknown) (unknown) 1. Interval healed (units (unknown) date) right subcapital unknown) femoral neck fracture with prior surgical (unknown) (no (unknown) (unknown) [address] (units (unknown) date) unknown) (unknown) (no (unknown) (unknown) 2. Questionable (units (unknown) date) subtle cortical unknown) irregularity involving right femoral neck near (unknown) (no (unknown) (unknown) 3 PHASE, (units (unkno wn) date) 05/30/2022, 9:41. unknown) (unknown) (no (unknown) (unknown) 3. Right hip joint (units (unknown) date) osteoarthritis. No unknown) evidence of avascular necrosis of (unknown) (no (unknown) (unknown) 4. No gross pelvic (units (unknown) date) or right hip soft unknown) tissue abnormalities. (unknown) (no (unknown) (unknown) 56, (units (unkno wn) date) unknown) (unknown) (no (unknown) (unknown) 8, image 23 (units (un known) date) unknown) (unknown) (no (unknown) (unknown) Accession Number: (units (unknown) date) [id number] unknown) (unknown) (no (unknown) (unknown) Age/Sex: 51 / F (units (unknown) date) Date of Service: unknown) (unknown) (no (unknown) (unknown) Lisa CHARLA [id number] (unit s (unknown) date) unknown) (unknown) (no (unknown) (unknown) Approved by: Endy (units (unknown) date) Trudy Mendoza on unknown) 09/01/2022 at 21:17 (unknown) (no (unknown) (unknown) Bones: There is (units (unknown) date) prior surgical unknown) pinning of right femoral neck with 3 long (unknown) (no (unknown) (unknown) COMPARISON: [place] (units (unknown) date) [facility], MR, MR HIP unknown) RT WO CON, 11/30/2021, 18:03. [place] (unknown) (no (unknown) (unknown) CT Scan Report (units (unknown) date) unknown) (unknown) (no (unknown) (unknown) Changes mild to (units (unknown) date) moderate right hip unknown) joint osteoarthritic changes are seen. No (unknown) (no (unknown) (unknown) : 1970 (units (unknown) date) Acct:[id number] unknown) (unknown) (no (unknown) (unknown) Dictated by: Endy (units (unknown) date) Trudy Mendoza on unknown) 09/01/2022 at 20:58 (unknown) (no (unknown) (unknown) FINDINGS: (units (unkn own) date) unknown) (unknown) (no (unknown) (unknown) Hospital, CR, XR (units (unknown) date) HIP W PEL IF DONE RT unknown) 2V, 05/21/2022, 15:01. [facility], (unknown) (no (unknown) (unknown) IMPRESSION: (units (un known) date) unknown) (unknown) (no (unknown) (unknown) INDICATIONS: RIGHT (units (unknown) date) FEMUR FRACTURE unknown) (unknown) (no (unknown) (unknown) Image quality: (units (unknown) date) Diagnostic. unknown) Significant beam hardening artifacts from right (unknown) (no (unknown) (unknown) [facility] (units (unknown) date) unknown) (unknown) (no (unknown) (unknown) [place] (units (unkno wn) date) unknown) (unknown) (no (unknown) (unknown) Loc: CT (units (unkno wn) date) unknown) (unknown) (no (unknown) (unknown) [place], [place] BONE (units (un known) date) unknown) (unknown) (no (unknown) (unknown) No dislocation. (units (unknown) date) unknown) (unknown) (no (unknown) (unknown) No evidence of (units (unknown) date) hardware loosening unknown) or failure. (unknown) (no (unknown) (unknown) Noncontrast 3 mm (units (unknown) date) axial sections unknown) acquired through the bony pelvis. Additional 2 (unknown) (no (unknown) (unknown) [place] (units (unkn own) date) unknown) (unknown) (no (unknown) (unknown) Ordering Provider: (units (unknown) date) Keena Abel MD unknown) (unknown) (no (unknown) (unknown) Orthopedic (units (unk nown) date) [place], CR, XR unknown) PELVIS WITH LATERAL HIP RIGHT, 08/10/2022, 15:56. (unknown) (no (unknown) (unknown) PROCEDURE: CT HIP (units (unknown) date) RIGHT WITHOUT CON unknown) (unknown) (no (unknown) (unknown) Patient's known (units (unknown) date) nondisplaced unknown) fracture through capital has healed. There is (unknown) (no (unknown) (unknown) Patient: (units (unkno wn) date) BrandtHeike Yohannes MR#: unknown) M0 (unknown) (no (unknown) (unknown) Procedure: Ct Hip (units (unknown) date) right without con unknown) (unknown) (no (unknown) (unknown) Signed (units (unkno wn) date) unknown) (unknown) (no (unknown) (unknown) Soft tissues: No (units (unknown) date) significant right unknown) hip joint effusion. No abnormal soft (unknown) (no (unknown) (unknown) TECHNIQUE: (units (unk nown) date) unknown) (unknown) (no (unknown) (unknown) acute (units (unkno wn) date) unknown) (unknown) (no (unknown) (unknown) and series 4, image (unit s (unknown) date) 43 with fairly well unknown) corticated margin. 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 unknown) (unknown) (no (unknown) (unknown) calcifications. No (units (unknown) date) gross full-thickness unknown) muscle or tendon rupture. No abnormal (unknown) (no (unknown) (unknown) cortical (units (unkno wn) date) irregularity unknown) involving posterior cortex of right proximal femur near (unknown) (no (unknown) (unknown) evidence of (units (un known) date) unknown) (unknown) (no (unknown) (unknown) expected (units (unkno wn) date) unknown) (unknown) (no (unknown) (unknown) femoral head. (units ( unknown) date) unknown) (unknown) (no (unknown) (unknown) fracture. (units (unkn own) date) unknown) (unknown) (no (unknown) (unknown) hardware are seen.. (unit s (unknown) date) unknown) (unknown) (no (unknown) (unknown) healed (units (unkno wn) date) unknown) (unknown) (no (unknown) (unknown) hip surgical (units (u nknown) date) unknown) (unknown) (no (unknown) (unknown) identified. No (units (unknown) date) suspicious bony unknown) lesion is seen. (unknown) (no (unknown) (unknown) in place. Right hip (unit s (unknown) date) alignment is unknown) anatomic. Surgical hardware are in their (unknown) (no (unknown) (unknown) intertrochanteric (units (unknown) date) region of right unknown) femoral neck concerning for subacute or (unknown) (no (unknown) (unknown) intramuscular (units ( unknown) date) hematoma or soft unknown) tissue fluid collection. No soft tissue mass is (unknown) (no (unknown) (unknown) involving (units (unkn own) date) unknown) (unknown) (no (unknown) (unknown) is (units (unkno wn) date) unknown) (unknown) (no (unknown) (unknown) location without (units (unknown) date) evidence of gross unknown) hardware loosening or failure. (unknown) (no (unknown) (unknown) mm axial (units (unkno wn) date) unknown) (unknown) (no (unknown) (unknown) nondisplaced (units (u nknown) date) intertrochanteric unknown) fracture versus areas of nutrient vessels. No (unknown) (no (unknown) (unknown) of greater (units (unk nown) date) trochanter with unknown) fairly corticated margin best seen on series 4 image (unknown) (no (unknown) (unknown) pelvic free fluid (units (unknown) date) or free air. unknown) (unknown) (no (unknown) (unknown) pinning. (units (unkno wn) date) unknown) (unknown) (no (unknown) (unknown) reformats. (units (unk nown) date) unknown) (unknown) (no (unknown) (unknown) represent a (units (un known) date) unknown) (unknown) (no (unknown) (unknown) sections acquired (units (unknown) date) through the unknown) symptomatic hip joint, with coronal and sagittal (unknown) (no (unknown) (unknown) seen. No (units (unkno wn) date) unknown) (unknown) (no (unknown) (unknown) series 8 image 39, (units (unknown) date) series 9, image 53. unknown) Cortical irregularity also noted (unknown) (no (unknown) (unknown) subacute to healed (units (unknown) date) intertrochanteric unknown) fracture. No evidence of acute fracture (unknown) (no (unknown) (unknown) subtle (units (unkno wn) date) unknown) (unknown) (no (unknown) (unknown) surgical screws (units (unknown) date) unknown) (unknown) (no (unknown) (unknown) the level (units (unkn own) date) unknown) (unknown) (no (unknown) (unknown) tissue (units (unkno wn) date) unknown) Social History No information. Vital Signs No information.
[2022-09-12 14:22] VITALS: BP 170/115
[2022-09-12 14:38] LABS: BASOPHILS # (AUTO) 0.1 10^3/uL (0.0-0.1); BASOPHILS % (AUTO) 0.5 %; EOSINOPHILS % (AUTO) 0.2 %; HCT - HEMATOCRIT 44.7 % (37.0-47.0); HGB - HEMOGLOBIN 15.1 g/dL (12.0-16.0); LYMPHOCYTES # (AUTO) 1.9 10^3/uL (1.5-3.5); LYMPHOCYTES % (AUTO) 14.6 %; MEAN CORPUSCULAR HGB CONC 33.8 g/dL (32.0-36.0); MEAN CORPUSCULAR VOLUME 94.7 fL (81.0-99.0); MEAN PLATELET VOLUME 9.3 fL (7.9-10.8); MONOCYTES # (AUTO) 0.9 10^3/uL (0.0-1.0); MONOCYTES % (AUTO) 6.9 %; NEUTROPHILS # (AUTO) 9.9 10^3/uL (1.5-6.6); NEUTROPHILS % (AUTO) 77.4 %; PLT - PLATELET COUNT 378 10^3/uL (130-450); RED BLOOD COUNT 4.72 10^6/uL (4.20-5.40); RED CELL DISTRIBUTION WIDTH 12.2 % (12.0-15.0); WHITE BLOOD COUNT 12.8 x10^3/uL (4.8-10.8)
[2022-09-12 14:59] LABS: ACETAMINOPHEN < 10 ug/mL (10-30); ALBUMIN 4.6 g/dL (3.2-5.5); ALBUMIN/GLOBULIN RATIO 1.2 (1.0-2.2); ALKALINE PHOSPHATASE 69 IU/L (42-121); ALT ALANINE AMINOTRANSFERASE 10 IU/L (10-60); AST ASPARTATE AMINOTRANSFERASE 20 IU/L (10-42); BUN - BLOOD UREA NITROGEN 12 mg/dL (6-20); CALCIUM 9.4 mg/dL (8.5-10.3); CARBON DIOXIDE - CO2 23 mmol/L (21-32); CHLORIDE 102 mmol/L (101-111); CREATININE 0.8 mg/dL (0.4-1.0); ETOH - ETHANOL < 5.0 mg/dL; GFR - MDRD 75 (>89); GLUCOSE 126 mg/dL (70-100); LIPASE 25 U/L (22-51); POTASSIUM 3.4 mmol/L (3.5-5.0); SALICYLATE < 6.0 mg/dL; SODIUM 138 mmol/L (135-145); TOTAL PROTEIN 8.3 g/dL (6.7-8.2)
[2022-09-12 16:36] LABS: MUDS CUTOFF CONCENTRATIONS CUTOFF CONC BELOW:
[2022-09-12 16:38] LABS: BILIRUBIN,URINE NEGATIVE (NEGATIVE); GLUCOSE, URINE (UA) NEGATIVE (NEGATIVE); KETONES,URINE (UA) TRACE mg/dL (NEGATIVE); LEUKOCYTE ESTERASE, URINE NEGATIVE (NEGATIVE); NITRITE,URINE POSITIVE (NEGATIVE); OCCULT BLOOD,URINE NEGATIVE (NEGATIVE); PROTEIN,URINE NEGATIVE (NEGATIVE); UROBILINOGEN,URINE 0.2 (NORMAL) E.U./dL (NORMAL)
[2022-09-12 16:40] LABS: CLARITY,URINE CLOUDY (CLEAR); HCG UR QUAL NEGATIVE
[2022-09-12 16:47] LABS: RBC,URINE 0-5 /HPF (0-5); WBC,URINE 0-3 /HPF (0-5)
[2022-09-12 16:48] LABS: BACTERIA,URINE Many /HPF (None Seen); SQUAMOUS EPITHELIAL CELL,UR FEW Squamous (<= Few)
[2022-09-12 16:49] LABS: AMPHETAMINE SCREEN,URINE NEGATIVE (NEGATIVE); BARBITURATE SCREEN,UR NEGATIVE (NEGATIVE); BENZODIAZEPINES SCREEN, URINE NEGATIVE (NEGATIVE); COCAINE SCREEN URINE NEGATIVE (NEGATIVE); METHADONE SCREEN, URINE NEGATIVE (NEGATIVE); METHAMPHETAMINES SCREEN, URINE NEGATIVE (NEGATIVE); OPIATE SCREEN, URINE NEGATIVE (NEGATIVE); OXYCODONE SCREEN, URINE NEGATIVE (NEGATIVE); PROPOXYPHENE SCREEN, URINE NEGATIVE (NEGATIVE); THC CANNABINOID SCREEN, URINE POSITIVE (NEGATIVE); TRICYCLIC ANTIDEPRESSANT,URINE NEGATIVE (NEGATIVE)
--- NOTE | 2022-09-12 17:11 | ED Physician Documentation ---
PD HPI MHE - Stated complaint Stated Complaint: MHE - Chief complaint Chief Complaint: MHE - History obtained from History obtained from: Patient - History of Present Illness Pain level max: 0 Pain level now: 0 - Additional information Additional information: 51-year-old female presents to the emergency department stating that she has b een having vivid dreams recently and feels like these were intensified by using marijuana before bedtime. She is not suicidal or homicidal. She is not hallucinating during the day. Does not hear any voices. Does not have any psychiatric history other than depression. She states that she would like something to help her sleep. 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: None : Kidney stones HEENT: None Psych: Anxiety Musculoskeletal: Osteoarthritis, Other Derm: Other drug resistant infections - Past Surgical History Past Surgical History: Yes General: Cholecystectomy, Appendectomy Ortho: Spine surgery, Arthroscopic surgery - Present Medications Home Medications: Ambulatory Orders Medication Instructions Recorded Confirmed clonazePAM [Clonazepam] 1 mg PO TID PRN 07/14/13 10/23/21 Acetaminophen [Acetaminophen Extra 500 mg PO QID PRN #50 tablet 10/23/21 Strength] Progesterone, Micronized 200 mg PO HS 10/23/21 10/23/21 [Prometrium] cloNIDine [Catapres] 0.2 mg PO TID 10/23/21 10/23/21 estradioL [Estradiol] 5 mg PO DAILY 10/23/21 10/23/21 QUEtiapine [SEROquel] 25 mg PO QPM #10 tablet 09/12/22 - Allergies Allergies/Adverse Reactions: Allergies Allergy/AdvReac Type Severity Reaction Status Date / Time Iodinated Contrast Media Allergy Severe Respiratory Verified 09/12/22 14:22 iodine Allergy Severe Rash Verified 09/12/22 14:22 morphine Allergy Severe Hives Verified 09/12/22 14:22 adhesive tape Allergy Intermediate Rash Verified 09/12/22 14:22 - Social History Does the pt smoke?: Yes Smoking Status: Current every day smoker Does the pt drink ETOH?: Yes Does the pt have substance abuse?: Yes Substance Use and Type: Marijuana - Immunizations Immunizations are current?: Yes - POLST Patient has POLST: No PD ED PE NORMAL - Vitals Vital signs reviewed: Yes - General General: Alert and oriented X 3, No acute distress - HEENT HEENT: Moist mucous membranes - Neck Neck: Supple, no meningeal sign - Cardiac Cardiac: RRR, Strong equal pulses - Respiratory Respiratory: No respiratory distress, Clear bilaterally - Abdomen Abdomen: Soft, Non tender, Non distended - Derm Derm: Warm and dry - Neuro Neuro: Alert and oriented X 3, greaser helper 2-12 intact, No motor deficit, No sensory deficit, Normal speech Eye Opening: Spontaneous Motor: Obeys Commands Verbal: Oriented GCS Score: 15 - Psych Psych: Normal mood, Normal affect Results - Vitals Vitals: Vital Signs - 24 hr 09/12/22 14:11 Temperature 37.5 C Heart Rate 108 H Respiratory 18 Rate Blood Pressure 170/115 H O2 Saturation 97 Oxygen O2 Source Room air - Labs Labs: Laboratory Tests 09/12/22 09/12/22 09/12/22 14:33 14:33 14:33 WBC 12.8 H RBC 4.72 Hgb 15.1 Hct 44.7 MCV 94.7 MCH 32.0 H MCHC 33.8 RDW 12.2 Plt Count 378 MPV 9.3 Neut # (Auto) 9.9 H Lymph # (Auto) 1.9 Shannon # (Auto) 0.9 Eos # (Auto) 0.0 Baso # (Auto) 0.1 Absolute Nucleated RBC 0.00 Nucleated RBC % 0.0 Sodium 138 Potassium 3.4 L Chloride 102 Carbon Dioxide 23 Anion Gap 13.0 BUN 12 Creatinine 0.8 Estimated GFR (MDRD) 75 L Glucose 126 H Calcium 9.4 Total Bilirubin 1.0 AST 20 ALT 10 Alkaline Phosphatase 69 Total Protein 8.3 H Albumin 4.6 Globulin 3.7 Albumin/Globulin Ratio 1.2 Lipase 25 TSH 1.29 Urine Color Urine Clarity Urine pH Ur Specific [place] Urine Protein Urine Glucose (UA) Urine Ketones Urine Occult Blood Urine Nitrite Urine Bilirubin Urine Urobilinogen Ur Leukocyte Esterase Urine RBC Urine WBC Ur Squamous Epith Cells Urine Bacteria Ur Microscopic Review Urine Culture Comments Urine HCG, Qual Salicylates < 6.0 Urine Opiates Screen Ur Oxycodone Screen Urine Methadone Screen Ur Propoxyphene Screen Acetaminophen < 10 L Ur Barbiturates Screen Ur Tricyclics Screen Ur Phencyclidine Scrn Ur Amphetamine Screen U Methamphetamines Scrn U Benzodiazepines Scrn Urine Cocaine Screen U Cannabinoids Screen Ethyl Alcohol < 5.0 09/12/22 14:40 WBC RBC Hgb Hct MCV MCH MCHC RDW Plt Count MPV Neut # (Auto) Lymph # (Auto) Shannon # (Auto) Eos # (Auto) Baso # (Auto) Absolute Nucleated RBC Nucleated RBC % Sodium Potassium Chloride Carbon Dioxide Anion Gap BUN Creatinine Estimated GFR (MDRD) Glucose Calcium Total Bilirubin AST ALT Alkaline Phosphatase Total Protein Albumin Globulin Albumin/Globulin Ratio Lipase TSH Urine Color YELLOW Urine Clarity CLOUDY Urine pH 6.0 Ur Specific [place] 1.025 Urine Protein NEGATIVE Urine Glucose (UA) NEGATIVE Urine Ketones TRACE Urine Occult Blood NEGATIVE Urine Nitrite POSITIVE H Urine Bilirubin NEGATIVE Urine Urobilinogen 0.2 (NORMAL) Ur Leukocyte Esterase NEGATIVE Urine RBC 0-5 Urine WBC 0-3 Ur Squamous Epith Cells FEW Squamous Urine Bacteria Many H Ur Microscopic Review INDICATED Urine Culture Comments INDICATED Urine HCG, Qual NEGATIVE Salicylates Urine Opiates Screen NEGATIVE Ur Oxycodone Screen NEGATIVE Urine Methadone Screen NEGATIVE Ur Propoxyphene Screen NEGATIVE Acetaminophen Ur Barbiturates Screen NEGATIVE Ur Tricyclics Screen NEGATIVE Ur Phencyclidine Scrn NEGATIVE Ur Amphetamine Screen NEGATIVE U Methamphetamines Scrn NEGATIVE U Benzodiazepines Scrn NEGATIVE Urine Cocaine Screen NEGATIVE U Cannabinoids Screen POSITIVE H Ethyl Alcohol PD Medical Decision Making - ED course Complexity details: reviewed results, re-evaluated patient, considered differential, d/w patient, 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 Negative for Tylenol, aspirin and alcohol. Urinalysis appears contaminated, she has no UTI symptoms. Chemistries are relatively unremarkable except for minimal hypokalemia. She has a mild leukocytosis as well, but no fevers. No signs of infection. Has had leukocytosis in the past. ED course: 51-year-old female presents with what appears to be vivid dreaming recently. She states that she has a history of insomnia. She is not suicidal or homicidal. She does not appear to be manic. Social work was consulted and evaluated the patient as well. We will trial her on a low-dose Seroquel to see if this helps. She will see her doctor either tomorrow or the next day. Patient counseled regarding signs and symptoms for which I believe and urgent re-evaluation would be necessary. Patient with good understanding of and agreement to plan and is comfortable going home at this time This document was made in part using voice recognition software. While efforts are made to proofread this document, sound alike and grammatical errors may occur. Departure - Departure Disposition: 01 Home, Self Care Clinical Impression: Vivid dream Insomnia Qualifiers: Insomnia type: unspecified Qualified Code(s): G47.00 - Insomnia, unspecified Condition: Good Instructions: ED Insomnia Follow-Up: Saleem Suazo MD [Primary Care Provider] - Within 3 Days Prescriptions: QUEtiapine [SEROquel] 25 mg PO QPM #10 tablet Comments: Your prescriptions were sent to [facility] in [place]. We will try you on Seroquel to see if this helps your symptoms. Please follow-up with your doctor in the next 2 days for repeat evaluation. Return if you worsen. Crisis Line and is available to talk to someone [email or web address] is also available to chat with someone online if you prefer. There are also many resources on this website and apps for your phone to help with your mental health You can also text the word START to [phone] to chat with someome via text. Discharge Date/Time: 09/12/22 17:23
== END 2022-09-12 17:23 | disposition home or self-care (01) ==
LOC: ED 14:09
DX: F51.8 Other sleep disorders not due to a substance or known physiological condition (principal); G47.00 Insomnia, unspecified; F17.200 Nicotine dependence, unspecified, uncomplicated
CPT/HCPCS: 36415; 80053; 80306; 80307; 80320; 80329; 81001; 81003; 81025; 83690; 84443; 85025; 87077; 87086; 87181; 99283